=== PATIENT | female | born 1965 | race Caucasian/White ===

== ENCOUNTER 2018-10-09 07:54 | Outpatient (CLI) | payer MEDICAID ==
[2018-10-09 10:43] LABS: BASOPHILS % (AUTO) 0.8 %; EOSINOPHILS # (AUTO) 0.2 10^3/uL (0.0-0.7); EOSINOPHILS % (AUTO) 4.3 %; HGB - HEMOGLOBIN 14.7 g/dL (12.0-16.0); LYMPHOCYTES # (AUTO) 1.4 10^3/uL (1.5-3.5); LYMPHOCYTES % (AUTO) 36.4 %; MEAN CORPUSCULAR HEMOGLOBIN 32.4 pg (27.0-31.0); MEAN CORPUSCULAR HGB CONC 33.6 g/dL (32.0-36.0); MEAN CORPUSCULAR VOLUME 96.2 fL (81.0-99.0); MEAN PLATELET VOLUME 8.8 fL (7.9-10.8); MONOCYTES # (AUTO) 0.3 10^3/uL (0.0-1.0); MONOCYTES % (AUTO) 6.9 %; NEUTROPHILS % (AUTO) 51.6 %; PLT - PLATELET COUNT 171 10^3/uL (130-450); RED BLOOD COUNT 4.54 10^6/uL (4.20-5.40); RED CELL DISTRIBUTION WIDTH 13.1 % (12.0-15.0); WHITE BLOOD COUNT 3.8 x10^3/uL (4.8-10.8)
[2018-10-09 10:48] LABS: ALBUMIN 3.9 g/dL (3.2-5.5); ALBUMIN/GLOBULIN RATIO 1.4 (1.0-2.2); ALKALINE PHOSPHATASE 48 IU/L (42-121); ALT ALANINE AMINOTRANSFERASE 21 IU/L (10-60); AST ASPARTATE AMINOTRANSFERASE 34 IU/L (10-42); BILIRUBIN,TOTAL 1.3 mg/dL (0.2-1.0); BUN - BLOOD UREA NITROGEN 14 mg/dL (6-20); CALCIUM 9.1 mg/dL (8.5-10.3); CARBON DIOXIDE - CO2 27 mmol/L (21-32); CHLORIDE 106 mmol/L (101-111); CHOL/HDL RATIO 2.3 (<4.4); CHOLESTEROL 160 mg/dL; CREATININE 0.7 mg/dL (0.4-1.0); GFR - MDRD 89 (>89); GLUCOSE 93 mg/dL (70-100); HDL CHOLESTEROL 69 mg/dL; LDL CHOLESTEROL,CALCULATED 82 mg/dL; LDL/HDL RATIO 1.2 (<4.4); SODIUM 141 mmol/L (135-145); TOTAL PROTEIN 6.6 g/dL (6.7-8.2); VLDL CHOLESTEROL 9 mg/dL
[2018-10-09 11:03] LABS: HB2 TOTAL 15.3 g/dL; HEMOGLOBIN A1C 0.54 g/dL; HEMOGLOBIN A1C % 5.4 % (4.6-6.2)
== END 2018-10-09 07:55 | disposition home or self-care (01) ==
LOC: LAB.F 07:54
PROVIDERS: ATTEND Registered Nurse
DX: C50.919 Malignant neoplasm of unspecified site of unspecified female breast (principal); E55.9 Vitamin D deficiency, unspecified
CPT/HCPCS: 36415; 80053; 80061; 82306; 83036; 83721; 84443; 85025

== ENCOUNTER 2019-09-03 14:07 | Outpatient (CLI) | payer MEDICAID | END 2019-09-03 14:08 | disposition home or self-care (01) | LOC: COV 14:07 | PROVIDERS: ATTEND Family Medicine | DX: R05 Cough (principal) ==

== ENCOUNTER 2019-10-28 13:37 | Outpatient (CLI) | payer MEDICAID | END 2019-10-28 13:38 | disposition home or self-care (01) | LOC: LAB 13:37 | PROVIDERS: ATTEND Family Medicine | DX: Z01.84 Encounter for antibody response examination (principal) | CPT/HCPCS: 36415; 86769 ==

== ENCOUNTER 2020-05-12 21:14 | Outpatient (CLI) | payer MEDICAID | END 2020-05-12 21:15 | disposition home or self-care (01) | LOC: COV 21:14 | PROVIDERS: ATTEND Family Medicine | DX: R05 Cough (principal); R06.02 Shortness of breath; R53.83 Other fatigue; R68.83 Chills (without fever); R07.0 Pain in throat; R09.81 Nasal congestion; R43.8 Other disturbances of smell and taste; R09.89 Other specified symptoms and signs involving the circulatory and respiratory systems; Z20.828 Contact with and (suspected) exposure to other viral communicable diseases ==

== ENCOUNTER 2022-10-02 08:00 | Outpatient (CLI) | payer MEDICAID | END 2022-10-02 23:59 | disposition home or self-care (01) | LOC: LAB.R 08:00 | PROVIDERS: ATTEND Physician Assistant Medical | DX: R35.0 Frequency of micturition (principal) | CPT/HCPCS: 87086 ==

== ENCOUNTER 2022-10-07 09:31 | Emergency (ER) | payer MEDICAID ==
[2022-10-07] MEDS ORDERED: SODIUM CHLORIDE 0.9% 1,000 ML IV STA (10:07)
[2022-10-07] MEDS ORDERED: ONDANSETRON 4 MG/2 ML VIAL IVP STA ×2 (10:07→11:27)
[2022-10-07] MEDS ORDERED: iohexoL-300 100 ML VIAL ONE (10:15)
[2022-10-07] MEDS ORDERED: DIATR MEGLU/DIATRIZOATE SODIUM 120 ML BOTTLE ONE (10:15)
[2022-10-07 10:33] LABS: BASOPHILS % (AUTO) 0.3 %; EOSINOPHILS % (AUTO) 0.1 %; HCT - HEMATOCRIT 46.1 % (37.0-47.0); HGB - HEMOGLOBIN 15.5 g/dL (12.0-16.0); LYMPHOCYTES # (AUTO) 1.4 10^3/uL (1.5-3.5); LYMPHOCYTES % (AUTO) 17.8 %; MEAN CORPUSCULAR HEMOGLOBIN 31.8 pg (27.0-31.0); MEAN CORPUSCULAR HGB CONC 33.6 g/dL (32.0-36.0); MEAN CORPUSCULAR VOLUME 94.7 fL (81.0-99.0); MEAN PLATELET VOLUME 9.6 fL (7.9-10.8); MONOCYTES # (AUTO) 0.4 10^3/uL (0.0-1.0); MONOCYTES % (AUTO) 4.5 %; PLT - PLATELET COUNT 246 10^3/uL (130-450); RED BLOOD COUNT 4.87 10^6/uL (4.20-5.40); RED CELL DISTRIBUTION WIDTH 11.9 % (12.0-15.0); WHITE BLOOD COUNT 7.8 x10^3/uL (4.8-10.8)
[2022-10-07 10:56] LABS: ALBUMIN 3.7 g/dL (3.2-5.5); ALBUMIN/GLOBULIN RATIO 1.4 (1.0-2.2); BILIRUBIN,TOTAL 1.8 mg/dL (0.2-1.0); CALCIUM 8.9 mg/dL (8.5-10.3); CREATININE 0.9 mg/dL (0.4-1.0); MAGNESIUM 1.8 mg/dL (1.7-2.8); POTASSIUM 4.4 mmol/L (3.5-5.0); TOTAL PROTEIN 6.4 g/dL (6.7-8.2)
--- NOTE | 2022-10-07 11:52 | ED Physician Documentation ---
History of Present Illness - Stated complaint Stated Complaint: DIARRHEA - Chief complaint Chief Complaint: General - History obtained from History obtained from: Patient - Additonal information Additional information: Patient is a 56-year-old female Presenting for evaluation of nausea and vomiting that has been present for a month with episodes of epigastric abdominal pain. Pain does radiate to the lower abdomen. Patient also reports having worsening loose stool for the past week.She reports her symptoms are worse after eating and has had decreased oral intake. Patient denies any change in her weight recently.Denies blood in stools or emesis.Describes the pain as a gnawing pain and sharp at times. No radiation to the back. She is seen at the walk-in clinic 2 days ago and a urine was checked which was negative for infection.Denies known fevers. Denies prior abdominal surgeries. Review of Systems Constitutional: denies: Fever Cardiac: denies: Chest pain / pressure Respiratory: denies: Dyspnea GI: reports: Abdominal Pain, Nausea, Vomiting : denies: Dysuria, Hematuria Neurologic: denies: Headache PD PAST MEDICAL HISTORY - Past Medical History Past Medical History: Yes Respiratory: Asthma COUNTY EXTENSION AGENT: Breast cancer Psych: Claustrophobia - Past Surgical History Past Surgical History: Yes /COUNTY EXTENSION AGENT: Mastectomy - Present Medications Home Medications: Ambulatory Orders Medication Instructions Recorded Confirmed Ondansetron Odt [Zofran] 4 mg TL Q6H PRN #10 tablet 10/07/22 Oxycodone HCl/Acetaminophen 1 each PO Q6H PRN #14 tablet 10/07/22 [Percocet 5-325 mg Tablet] - Allergies Allergies/Adverse Reactions: Allergies Allergy/AdvReac Type Severity Reaction Status Date / Time Penicillins AdvReac Rash Verified 10/07/22 09:41 - Social History Does the pt smoke?: No Smoking Status: Former smoker Does the pt drink ETOH?: No Does the pt have substance abuse?: No PD ED PE NORMAL - General General: Alert and oriented X 3, No acute distress, Other (BMI of 18) - HEENT HEENT: Atraumatic - Neck Neck: Supple, no meningeal sign - Cardiac Cardiac: RRR, No murmur - Respiratory Respiratory: No respiratory distress, Clear bilaterally - Abdomen Abdomen: Normal bowel sounds, Soft, Non distended, Other (Mild epigastric tenderness to palpation; No rebound, no guarding, no mass) - Derm Derm: Warm and dry - Neuro Neuro: Normal speech Results - Vitals Vitals: Vital Signs - 24 hr 10/07/22 10/07/22 09:35 14:04 Temperature 36.8 C Heart Rate 102 H 74 Respiratory 16 18 Rate Blood Pressure 118/81 H 110/67 O2 Saturation 96 100 Oxygen O2 Source Room air - EKG (time done) 1028 EKG releavant findings:: EKG personally interpreted by author of this note. Relevant findings are: Rate 67, normal sinus rhythm, no STEMI, QTc 412 Rate: Rate (enter#) (67) Rhythm: NSR Intervals: No: Prolonged QT Ischemia: No: ST elevation c/w ischemia - Labs Labs: Laboratory Tests 10/07/22 10/07/22 10/07/22 10:25 10:25 10:25 WBC 7.8 RBC 4.87 Hgb 15.5 Hct 46.1 MCV 94.7 MCH 31.8 H MCHC 33.6 RDW 11.9 L Plt Count 246 MPV 9.6 Neut # (Auto) 6.0 Lymph # (Auto) 1.4 L [place] # (Auto) 0.4 Eos # (Auto) 0.0 Baso # (Auto) 0.0 Absolute Nucleated RBC 0.00 Nucleated RBC % 0.0 Sodium 134 L Potassium 4.4 Chloride 99 L Carbon Dioxide 20 L Anion Gap 15.0 H BUN 19 Creatinine 0.9 Estimated GFR (MDRD) 65 L Glucose 74 Calcium 8.9 Magnesium 1.8 Total Bilirubin 1.8 H AST 27 ALT 18 Alkaline Phosphatase 42 Troponin I High Sens 4.2 Total Protein 6.4 L Albumin 3.7 Globulin 2.7 Albumin/Globulin Ratio 1.4 Lipase 28 Stl C. diff Tox B Gene 10/07/22 13:50 WBC RBC Hgb Hct MCV MCH MCHC RDW Plt Count MPV Neut # (Auto) Lymph # (Auto) [place] # (Auto) Eos # (Auto) Baso # (Auto) Absolute Nucleated RBC Nucleated RBC % Sodium Potassium Chloride Carbon Dioxide Anion Gap BUN Creatinine Estimated GFR (MDRD) Glucose Calcium Magnesium Total Bilirubin AST ALT Alkaline Phosphatase Troponin I High Sens Total Protein Albumin Globulin Albumin/Globulin Ratio Lipase Stl C. diff Tox B Gene NEGATIVE PD Medical Decision Making - ED course Complexity details: reviewed results, re-evaluated patient, d/w patient ED course: 3151 - Discussed with Dr. Melvin who is on for the [facility]. Reviewed results. Patient usually sees Angela Agustin. He will help arrange for close outpatient follow-up. Presenting for evaluation of abdominal symptoms for the past 1 month.Her vital signs appear stable. Her BMI is only 18 but patient states that she has not had any recent weight loss. Labs reviewed including CBC, chemistries. Bili of 1.8. Castrate suggest perhaps some level of dehydration. Patient was given IV fluids and IV Zofran x2 with improvement in her symptoms. She was able to tolerate p.o. contrast and a CT of the abdomen pelvis obtained which I reviewed. CT scan unfortunately shows concerns for metastatic disease with unknown cancer origin.I reviewed these results with the patient and her significant other at the bedside. They are understanding that the CT scan is highly concerning for cancer with metastatic spread and that she needs close follow-up with her PCP. She is usually seen at the [facility]. I spoke to Dr. Melvin who is on- call for the clinic this weekend to review these results and to help arrange for quick outpatient follow-up which he agrees to do. Patient was given medications to help with pain and nausea at home. She is advised on concerning symptoms to return for. She was able to give a stool sample given recent reports of looser stools and that they were sent for culture as well as C. difficile testing. C. difficile testing is negative.Culture is pending. Departure - Departure Disposition: Home, Self Care Clinical Impression: Abdominal pain, Metastatic disease Condition: Stable Instructions: ED Abdominal Pain Female Non-Specific Abdominal Pain Prescriptions: Oxycodone HCl/Acetaminophen [Percocet 5-325 mg Tablet] 1 each PO Q6H PRN #14 tablet PRN Reason: pain Ondansetron Odt [Zofran] 4 mg TL Q6H PRN #10 tablet PRN Reason: Nausea / Vomiting Comments: The CT scan of your abdomen and pelvis is highly concerning for metastatic disease related to cancer. It is unclear where the primary cancer is originating from. You need very close follow-up with the [facility] This week for further testing and evaluation. I have spoken to Dr. Melvin who is on-call for the clinic this weekend. Please call the clinic tomorrow for close follow-up with your PCP. I have also sent prescriptions for antinausea and pain medications to [facility] in [place]. I am prescribing a short course of narcotic pain medication for you. These are potentially dangerous and addictive medications that should be used carefully. These medications may constipate you. Take an fqmi-ecj-esmwual stool softener (docusate) twice daily with plenty of water while taking these medications. If you go 24 hours without a bowel movement, take xwoo-mym-vbadjcn miralax, per [facility] instructions. Do not drink or drive while taking these medications. If you received narcotic or sedating medications while in the emergency department, do not drive for 24 hours. Store this medication in a safe, secure place and out of reach of children. It is a violation of federal law to give or sell this medication to another person or to use in a manner other than prescribed. The ED will not refill narcotic prescriptions, including prescriptions lost or stolen. To dispose of unwanted medications: 1. [facility] at [address] in [place] has a medication drop box. They accept prescription medications (in pill form) Saturday through Saturday 9:00 a.m. to 5:00 p.m. 2. The [facility] [employer] accepts prescription medications (in pill form only) for disposal year round. Call for more information. 3. Contact the [facility] for the next [facility] sponsored prescription drug collection event. , [phone], or [phone]; Note that many narcotic pain relievers also contain Tylenol/acetaminophen. Please ensure that your total dose of acetaminophen from all sources does not exceed 3 g (3000 mg) per day. IMPRESSION: 1. Findings highly suspicious for metastatic disease involving the abdomen and pelvis, primary neoplasm uncertain. Multiple liver lesions are present, moderate-large amount of abdominal pelvic free fluid, possible omental caking, and multiple suspicious bony lesions are present. 2. Mild right hydronephrosis, level of obstruction unclear, presumably related to suspected metastatic disease. 3. Wall thickening of the sigmoid colon and multiple distal small bowel loops is present, may be reactive related to the presence of free fluid, but nonspecific infectious or inflammatory enterocolitis also possible. 4. Cholelithiasis. Discharge Date/Time: 10/07/22 14:15
[2022-10-07] MEDS ORDERED: iohexoL-300 100 ML VIAL IVP ONE (13:19)
[2022-10-07] MEDS ORDERED: DIATRIZOATE MEGLU/DIATRIZO SOD 30 ML BOTTLE PO ONE (13:19)
--- NOTE | 2022-10-07 13:23 | CT Report ---
PROCEDURE: ABDOMEN/PELVIS W INDICATIONS: epigastric to lower abd pain CONTRAST: 100ml Omnipaque 300 TECHNIQUE: After the administration of oral and intravenous contrast, 5 mm thick sections acquired from the diap hragms to the symphysis. 5 mm thick coronal and sagittal reformats were acquired. For radiation dos e reduction, the following was used: automated exposure control, adjustment of mA and/or kV accordin g to patient size. COMPARISON: None FINDINGS: Images are denoted as (series #/image #). Visualized lung bases: No pleural effusion. Liver and biliary tree: Multiple liver lesions are present involving both lobes of the liver. Represe ntative lesions include in segment 8/7 measuring 3.2 cm (08/18) and in segment 3 measuring 2.9 cm (08/08 8). No biliary ductal dilation demonstrated. Gallbladder: Multiple gallstones are present. Spleen: Unremarkable. Pancreas: Unremarkable. Adrenal glands: Unremarkable. Kidneys and ureters: Mild right hydronephrosis, level of obstruction unclear. No left hydronephrosis. Gastrointestinal tract: No bowel obstruction. Wall thickening of the sigmoid colon and multiple dista l small bowel loops present. No evidence of mechanical small bowel obstruction. Peritoneal cavity: Moderate-large amount of abdominal and pelvic free fluid. Possible soft tissue inf iltration of the omentum, for example at the left upper abdomen (09/01). Bladder: Unremarkable. Pelvic organs: Unremarkable CT appearance. Vasculature: No abdominal aortic aneurysm. Lymph nodes: No highly suspicious lymph nodes visualized. Musculoskeletal: Innumerable small sclerotic foci present within the imaged skeleton. IMPRESSION: 1. Findings highly suspicious for metastatic disease involving the abdomen and pelvis, primary neopla sm uncertain. Multiple liver lesions are present, moderate-large amount of abdominal pelvic free flui d, possible omental caking, and multiple suspicious bony lesions are present. 2. Mild right hydronephrosis, level of obstruction unclear, presumably related to suspected metastati c disease. 3. Wall thickening of the sigmoid colon and multiple distal small bowel loops is present, may be reac tive related to the presence of free fluid, but nonspecific infectious or inflammatory enterocolitis also possible. 4. Cholelithiasis. Reviewed by: Dickson Jimenez MD on 10/07/2022 1:22 PM PDT Approved by: Dickson Jimenez MD on 10/07/2022 1:22 PM PDT Station ID: [id number]
[2022-10-07 14:04] VITALS: BP 110/67
== END 2022-10-07 14:15 | disposition home or self-care (01) ==
LOC: ED 09:31
DX: R10.13 Epigastric pain (principal); C79.9 Secondary malignant neoplasm of unspecified site; Z85.3 Personal history of malignant neoplasm of breast; Z87.891 Personal history of nicotine dependence; Z79.899 Other long term (current) drug therapy
CPT/HCPCS: 36415; 74177; 80053; 83690; 83735; 84484; 85025; 87045; 87046; 87427; 87493; 93005; 96374; 96376; 99284; Q9963; Q9967

== ENCOUNTER 2022-11-17 09:50 | Emergency (ER) | payer MEDICAID ==
--- NOTE | 2022-11-17 10:19 | ED Physician Documentation ---
History of Present Illness - Stated complaint Stated Complaint: LT LEG SWELLING - Chief complaint Chief Complaint: Ext Problem - History obtained from History obtained from: Patient - History of Present Illness Pain level max: 3 Pain level now: 3 - Additonal information Additional information: 56-year-old female with metastatic cancer, unknown primary, presents to the emergency department with left lower extremity swelling over the past several days. She has not had this happen to her before. She is not having any significant pain. She states that she is not having any shortness of breath, chest pain, fevers, chills. Denies any trauma. Nothing makes it better or worse. She does have a history of ascites, she had fluid drained from her abdomen several weeks ago. She does not feel like her abdomen is painful or tense today. Review of Systems Constitutional: denies: Fever, Chills Respiratory: denies: Cough GI: denies: Nausea, Vomiting, Diarrhea : denies: Dysuria Skin: denies: Rash Musculoskeletal: denies: Neck pain, Back pain Neurologic: denies: Headache PD PAST MEDICAL HISTORY - Past Medical History Respiratory: Asthma CORRECTIONAL PROBATION OFFICER: Breast cancer Psych: Claustrophobia - Past Surgical History Past Surgical History: Yes /CORRECTIONAL PROBATION OFFICER: Mastectomy - Present Medications Home Medications: Ambulatory Orders Medication Instructions Recorded Confirmed Ondansetron Odt [Zofran] 4 mg TL Q6H PRN #10 tablet 10/07/22 Oxycodone HCl/Acetaminophen 1 each PO Q6H PRN #14 tablet 10/07/22 [Percocet 5-325 mg Tablet] Apixaban [Eliquis] 5 mg PO BID #60 tablet 11/17/22 Apixaban [Eliquis] 10 mg PO BID #14 tablet 11/17/22 - Allergies Allergies/Adverse Reactions: Allergies Allergy/AdvReac Type Severity Reaction Status Date / Time Penicillins AdvReac Rash Verified 11/17/22 09:58 - Social History Does the pt smoke?: No Smoking Status: Former smoker Does the pt drink ETOH?: No Does the pt have substance abuse?: No PD ED PE NORMAL - Vitals Vital signs reviewed: Yes - General General: Alert and oriented X 3, No acute distress, Other (Thin female) - HEENT HEENT: PERRL, Moist mucous membranes - Neck Neck: Supple, no meningeal sign - Cardiac Cardiac: RRR, Strong equal pulses - Respiratory Respiratory: No respiratory distress, Clear bilaterally - Abdomen Abdomen: Soft, Non tender, Other (Mild distention, soft) - Derm Derm: Warm and dry - Extremities Extremities: Other (Right lower extremity does not show any acute abnormalities. Left lower extremity is approximately 2 times the size, swollen and mildly erythematous. No warmth. There is calf tenderness. Neurovascular intact. No open wounds.) - Neuro Neuro: Alert and oriented X 3 - Psych Psych: Normal mood, Normal affect Results - Vitals Vitals: Vital Signs - 24 hr 11/17/22 11/17/22 09:54 11:58 Temperature 36.8 C Heart Rate 92 82 Respiratory 16 16 Rate Blood Pressure 108/93 H 101/73 O2 Saturation 96 97 Oxygen O2 Source Room air - Labs Labs: Laboratory Tests 11/17/22 11/17/22 11/17/22 10:18 10:18 10:18 WBC 7.5 RBC 4.58 Hgb 14.2 Hct 43.6 MCV 95.2 MCH 31.0 MCHC 32.6 RDW 12.0 Plt Count 217 MPV 8.6 Neut # (Auto) 6.0 Lymph # (Auto) 0.9 L [place] # (Auto) 0.5 Eos # (Auto) 0.1 Baso # (Auto) 0.0 Absolute Nucleated RBC 0.00 Nucleated RBC % 0.0 PT 11.7 INR 1.0 APTT 26.5 Sodium 136 Potassium 3.9 Chloride 100 L Carbon Dioxide 27 Anion Gap 9.0 BUN 11 Creatinine 0.8 Estimated GFR (MDRD) 75 L Glucose 101 H Calcium 9.0 Total Bilirubin 1.1 H AST 26 ALT 17 Alkaline Phosphatase 64 Total Protein 7.4 Albumin 3.7 Globulin 3.7 Albumin/Globulin Ratio 1.0 - Rads (name of study) LLE duplex US Relevant Findings:: Final report received, See rad report PD Medical Decision Making - ED course Complexity details: reviewed results, re-evaluated patient, considered differential, d/w patient, d/w family ED course: 56-year-old female with unknown primary cancer, but the current thinking is possibly breast cancer, has metastases throughout her abdomen. She came in with left lower extremity swelling, exam concerning for DVT. Ultrasound shows a positive DVT. Discussed risks and benefits of anticoagulation and different medications. We discussed the reversibility of warfarin, bridging with Lovenox, patient elects to go with a DOAC instead. We will place her on Eliquis. Discussed risks including bleeding, risks of head injury on anticoagulants. Patient does not have any history of intracranial hemorrhage, GI bleeds, recent surgeries or recent injuries. Patient counseled regarding signs and symptoms for which I believe and urgent re-evaluation would be necessary. Patient with good understanding of and agreement to plan and is comfortable going home at this time This document was made in part using voice recognition software. While efforts are made to proofread this document, sound alike and grammatical errors may occur. Positive deep venous thrombosis left lower extremity. Departure - Departure Disposition: Home, Self Care Clinical Impression: DVT (deep venous thrombosis) Qualifiers: DVT location: lower extremity Affected thrombotic vein of extremity: unspecified vein of extremity Chronicity: acute Laterality: left Qualified Code(s): I82.402 - Acute embolism and thrombosis of unspecified deep veins of left lower extremity Condition: Good Instructions: ED DVT Follow-Up: your,doctor in 1 week [Other] Prescriptions: Apixaban [Eliquis] 5 mg PO BID #60 tablet Apixaban [Eliquis] 10 mg PO BID #14 tablet Comments: Your prescriptions were sent to [facility] in [place]. As we discussed you have extensive blood clots in your left leg. You will start on Eliquis 10 mg by mouth twice daily x1 week, then we will decrease your dose to 5 mg twice daily by mouth. Please make an appointment with your PCP for further care. Please return if you worsen, including noticing bleeding, dark, tarry stools, any other signs of bleeding. You also need to be seen immediately if you fall and strike your head or develop any severe headaches. Discharge Date/Time: 11/17/22 12:44
[2022-11-17 10:36] LABS: BASOPHILS % (AUTO) 0.3 %; EOSINOPHILS # (AUTO) 0.1 10^3/uL (0.0-0.7); EOSINOPHILS % (AUTO) 1.1 %; HCT - HEMATOCRIT 43.6 % (37.0-47.0); HGB - HEMOGLOBIN 14.2 g/dL (12.0-16.0); LYMPHOCYTES # (AUTO) 0.9 10^3/uL (1.5-3.5); LYMPHOCYTES % (AUTO) 11.9 %; MEAN CORPUSCULAR HGB CONC 32.6 g/dL (32.0-36.0); MEAN CORPUSCULAR VOLUME 95.2 fL (81.0-99.0); MEAN PLATELET VOLUME 8.6 fL (7.9-10.8); MONOCYTES # (AUTO) 0.5 10^3/uL (0.0-1.0); MONOCYTES % (AUTO) 7.2 %; NEUTROPHILS % (AUTO) 79.1 %; PLT - PLATELET COUNT 217 10^3/uL (130-450); RED BLOOD COUNT 4.58 10^6/uL (4.20-5.40); WHITE BLOOD COUNT 7.5 x10^3/uL (4.8-10.8)
[2022-11-17 10:41] LABS: PT - PROTHROMBIN TIME 11.7 secs (9.9-12.6)
[2022-11-17 10:47] LABS: ALBUMIN 3.7 g/dL (3.2-5.5); BILIRUBIN,TOTAL 1.1 mg/dL (0.2-1.0); CREATININE 0.8 mg/dL (0.4-1.0); POTASSIUM 3.9 mmol/L (3.5-5.0); TOTAL PROTEIN 7.4 g/dL (6.7-8.2)
[2022-11-17 10:49] LABS: PARTIAL THROMBOPLASTIN TIME 26.5 secs (24.9-33.3)
[2022-11-17] MEDS ORDERED: APIXABAN 5 MG TABLET PO STA (12:03)
--- NOTE | 2022-11-17 12:07 | Ultrasound Report ---
PROCEDURE: Duplex Ext Veins Left INDICATIONS: LLE swelling TECHNIQUE: Real-time imaging, as well as color and pulse Doppler interrogation, were performed of the lower extr emity deep veins from the inguinal ligament to the popliteal fossa. COMPARISON: None. FINDINGS: Internal echoes and noncompressibility noted from the left external iliac vein through the popliteal vein, consistent with thrombus. Veins in the calf were not imaged. Incidental note is made of abdominal ascites. IMPRESSION: Positive deep venous thrombosis left lower extremity. Results were discussed with Dr. Burger by the receivable manager at 11:40 AM local time Reviewed by: Nelson Kendrick MD on 11/17/2022 11:06 AM [facility] Approved by: Nelson Kendrick MD on 11/17/2022 11:06 AM [facility] Station ID: [id number]
[2022-11-17 12:30] VITALS: BP 101/73
== END 2022-11-17 12:44 | disposition home or self-care (01) ==
LOC: ED 09:50
DX: I82.402 Acute embolism and thrombosis of unspecified deep veins of left lower extremity (principal); C79.89 Secondary malignant neoplasm of other specified sites; Z87.891 Personal history of nicotine dependence
CPT/HCPCS: 36415; 80053; 85025; 85610; 85730; 93971; 99284; A9270

== ENCOUNTER 2023-06-10 11:30 | Outpatient (CLI) | payer MEDICAID ==
--- NOTE | 2023-06-11 10:24 | XRAY Report ---
PROCEDURE: Chest 2V INDICATIONS: BROCHITIS ACUTE TECHNIQUE: 2 views of the chest were acquired. COMPARISON: CT chest 05/14/2023. FINDINGS: Surgical changes and devices: Left chest port catheter with tip projecting over the right atrium. Simeon rgical clips in the right axilla. Lungs and pleura: No pleural effusions or pneumothorax. Lungs are clear. Mediastinum: Mediastinal contours appear normal. Heart size is normal. Bones and chest wall: No suspicious bony lesions. Overlying soft tissues appear unremarkable. Sta tus post bilateral mastectomies IMPRESSION: No acute cardiopulmonary process. Reviewed by: Venessa Benitez MD on 06/11/2023 10:23 AM [facility] Approved by: Venessa Benitez MD on 06/11/2023 10:23 AM [facility] Station ID: [id number]
== END 2023-06-10 23:59 | disposition home or self-care (01) ==
LOC: DI.S 11:30
PROVIDERS: ATTEND Emergency Medicine
DX: J20.9 Acute bronchitis, unspecified (principal)

== ENCOUNTER 2023-08-01 00:44 | Emergency (ER) | payer MEDICAID ==
[2023-08-01] MEDS: SODIUM CHLORIDE 0.9% 1,000 ML IV STA ×2 (01:13→07:53)
[2023-08-01 01:16] LABS: BASOPHILS % (AUTO) 1.4 %; EOSINOPHILS % (AUTO) 0.5 %; HCT - HEMATOCRIT 36.6 % (37.0-47.0); LYMPHOCYTES % (AUTO) 32.1 %; MEAN CORPUSCULAR HEMOGLOBIN 35.6 pg (27.0-31.0); MEAN CORPUSCULAR HGB CONC 32.8 g/dL (32.0-36.0); MEAN CORPUSCULAR VOLUME 108.6 fL (81.0-99.0); MEAN PLATELET VOLUME 8.9 fL (7.9-10.8); MONOCYTES % (AUTO) 6.4 %; NEUTROPHILS % (AUTO) 59.6 %; PLT - PLATELET COUNT 198 10^3/uL (130-450); RED BLOOD COUNT 3.37 10^6/uL (4.20-5.40); RED CELL DISTRIBUTION WIDTH 13.8 % (12.0-15.0); VBG BASE EXCESS 0.1 mmol/L (-2 - +2); VBG PCO2 36.6 mmHg (41-51); VBG PH 7.434 (7.31-7.41); VBG PO2 46.8 mmHg (25-47); VBG TOTAL CO2 25.1 mmol/L (24-29); WHITE BLOOD COUNT 2.2 x10^3/uL (4.8-10.8)
[2023-08-01 01:23] LABS: ABNORMAL LYMPHS % (MANUAL) 0 %
[2023-08-01 01:33] LABS: ALBUMIN 3.7 g/dL (3.2-5.5); ALBUMIN/GLOBULIN RATIO 1.3 (1.0-2.2); BILIRUBIN,TOTAL 1.3 mg/dL (0.2-1.0); CALCIUM 9.2 mg/dL (8.5-10.3); CREATININE 0.9 mg/dL (0.6-1.3); POTASSIUM 4.3 mmol/L (3.5-4.5); TOTAL PROTEIN 6.5 g/dL (6.4-8.9)
[2023-08-01 01:52] LABS: BAND NEUTROPHILS % (MANUAL) 5 %; DIFFERENTIAL COMMENT MANUAL DIFFERENTIAL; LYMPHOCYTES # (MANUAL) 0.8 10^3/uL (1.5-3.5); LYMPHOCYTES % (MANUAL) 35 %; MONOCYTES # (MANUAL) 0.1 10^3/uL (0.0-1.0); NEUTROPHILS # (MANUAL) 1.3 10^3/uL (1.5-6.6); PLATELET ESTIMATE, MANUAL NORMAL (130-450,000) (NORMAL); RBC MORPHOLOGY (MULTIPLE) NORMAL APPEARANCE (NORMAL); REACTIVE LYMPHS % (MANUAL) 2 %
[2023-08-01] MEDS: LORazepam 2 MG/ML VIAL IVP STA ×2 (01:54→06:47)
[2023-08-01 02:16] LABS: B. PARAPERTUSSIS- RESP PCR PAN NOT DETECTED; B. PERTUSSIS- RESP PCR PANEL NOT DETECTED; C. PNEUMONIAE- RESP PCR PANEL NOT DETECTED; CORONAVIRUS 229E-RESP PCR NOT DETECTED; CORONAVIRUS HKU1-RESP PCR NOT DETECTED; CORONAVIRUS NL63-RESP PCR NOT DETECTED; CORONAVIRUS OC43-RESP PCR NOT DETECTED; HUMAN METAPNEUMOVIRUS NOT DETECTED; INFLUENZA A- RESP PCR PANEL NOT DETECTED; INFLUENZA B - RESP PCR PANEL NOT DETECTED; M. PNEUMONIAE- RESP PCR PANEL NOT DETECTED; PARAINFLUENZA VIRUS 1 NOT DETECTED; PARAINFLUENZA VIRUS 2 NOT DETECTED; PARAINFLUENZA VIRUS 3 NOT DETECTED; PARAINFLUENZA VIRUS 4 NOT DETECTED; RHINOVIRUS/ENTEROVIRUS NOT DETECTED; RSV- RESP PCR PANEL NOT DETECTED; SARS-CoV-2 -RESP PCR PANEL NOT DETECTED
--- NOTE | 2023-08-01 02:25 | ED Physician Documentation ---
History of Present Illness - Stated complaint Stated Complaint: ABD/BACK PX - Chief complaint Chief Complaint: Abd Pain - History obtained from History obtained from: Patient - Additonal information Additional information: 57yF with pmh breast cancer metastatic to peritoneum, liver and bone, on oral chemotherapy s/p IV chemotherapy regimen, p/w 01/17 abdominal pain intermittent starting today and radiating to back, worse with movement, sharp. denies nausea but she took zofran around midnight preventatively as per her usual with chemotherapy regimen. denies diarrhea. Patient states she took stool softeners and fiber because she's been constipated. last BM 2 days ago. denies fever Review of Systems Constitutional: denies: Fever, Chills Cardiac: denies: Chest pain / pressure Respiratory: reports: Cough. denies: Dyspnea GI: reports: Abdominal Pain, Constipation. denies: Nausea, Vomiting, Diarrhea, Bloody / black stool : denies: Dysuria, Frequency, Hematuria PD PAST MEDICAL HISTORY - Past Medical History Past Medical History: Yes Respiratory: Asthma INSTALL TECHNICIAN: Breast cancer : None Psych: Claustrophobia Musculoskeletal: None Other Past Medical History: metastatic ca - Past Surgical History Past Surgical History: Yes /INSTALL TECHNICIAN: Mastectomy - Present Medications Home Medications: Ambulatory Orders Medication Instructions Recorded Confirmed Ondansetron Odt [Zofran] 4 mg TL Q6H PRN #10 tablet 10/07/22 07/05/23 Oxycodone HCl/Acetaminophen 1 each PO Q6H PRN #14 tablet 10/07/22 07/05/23 [Percocet 5-325 mg Tablet] Apixaban [Eliquis] 5 mg PO BID #60 tablet 11/17/22 07/05/23 Letrozole 1 tab PO DAILY 05/16/23 07/05/23 Ribociclib Succinate [Kisqali] 600 mg PO DAILY 05/16/23 07/05/23 Famotidine [Acid Line Tender Flakeboard] 20 mg PO BID 07/05/23 07/05/23 - Allergies Allergies/Adverse Reactions: Allergies Allergy/AdvReac Type Severity Reaction Status Date / Time Penicillins AdvReac Rash Verified 08/01/23 01:03 - Social History Does the pt smoke?: No Smoking Status: Never smoker Does the pt drink ETOH?: No Does the pt have substance abuse?: No Substance Use and Type: CBD oil / Products - Immunizations Immunizations are current?: Yes - POLST Patient has POLST: No PD ED PE NORMAL - Vitals Vital signs reviewed: Yes - General General: Alert and oriented X 3, Other (cachectic appearing) - HEENT HEENT: Atraumatic, PERRL, EOMI, Moist mucous membranes - Neck Neck: Supple, no meningeal sign - Cardiac Cardiac: RRR - Respiratory Respiratory: No respiratory distress, Clear bilaterally - Abdomen Abdomen: Other (tender, voluntary guarding all four quadrants) - Rectal Rectal: Other (SHRAVAN funk. rectal exam brown hard stool. mineral oil enema administered) - Back Back: No CVA TTP - Derm Derm: Normal color, Warm and dry - Extremities Extremities: No deformity - Neuro Neuro: Alert and oriented X 3 - Psych Psych: Normal mood, Normal affect Results - Vitals Vitals: Vital Signs - 24 hr 08/01/23 00:57 Temperature 36.6 C Heart Rate 86 Respiratory 19 Rate Blood Pressure 87/62 L O2 Saturation 95 Oxygen O2 Source Room air - Labs Labs: Laboratory Tests 08/01/23 08/01/23 08/01/23 01:10 01:10 01:10 WBC 2.2 L RBC 3.37 L Hgb 12.0 Hct 36.6 L MCV 108.6 H MCH 35.6 H MCHC 32.8 RDW 13.8 Plt Count 198 MPV 8.9 Neut # (Auto) Not Reportable Lymph # (Auto) Not Reportable Bladen # (Auto) Not Reportable Eos # (Auto) Not Reportable Baso # (Auto) Not Reportable Absolute Nucleated RBC Not Reportable Total Counted 100 Band Neuts % (Manual) 5 Reactive Lymphs % (Man) 2 Abnorm Lymph % (Manual) 0 Nucleated RBC % Not Reportable Neutrophils # (Manual) 1.3 L Lymphocytes # (Manual) 0.8 L Monocytes # (Manual) 0.1 Eosinophils # (Manual) 0.0 Basophils # (Manual) 0.0 Differential Comment MANUAL DIFFERENTIAL Platelet Estimate NORMAL (130-450,000) RBC Morph Micro Appear NORMAL APPEARANCE VBG pH 7.434 H VBG pCO2 36.6 L VBG pO2 46.8 VBG HCO3 24.0 VBG Total CO2 25.1 VBG O2 Saturation 83.0 H VBG Base Excess 0.1 Sodium 134 L Potassium 4.3 Chloride 101 Carbon Dioxide 26 Anion Gap 7.0 BUN 12 Creatinine 0.9 Estimated GFR (MDRD) 65 L Glucose 151 H Lactic Acid Calcium 9.2 Total Bilirubin 1.3 H AST 19 ALT 17 Alkaline Phosphatase 53 Total Protein 6.5 Albumin 3.7 Globulin 2.8 Albumin/Globulin Ratio 1.3 Lipase 11 Nasal Adenovirus (PCR) Nasal B. parapertussis DNA (PCR) Nasal Coronavir 229E PCR Nasal Coronavir HKU1 PCR Nasal Coronavir NL63 PCR Nasal Coronavir OC43 PCR Nasal Enterovir/Rhinovir PCR Nasal Influenza B PCR Nasal Influenza A PCR Nasal Parainfluen 1 PCR Nasal Parainfluen 2 PCR Nasal Parainfluen 3 PCR Nasal Parainfluen 4 PCR Nasal RSV (PCR) Nasal B.pertussis DNA PCR Nasal C.pneumoniae (PCR) Maverick Human Metapneumo PCR Nasal M.pneumoniae (PCR) Nasal SARS-CoV-2 (PCR) 08/01/23 08/01/23 01:10 01:20 WBC RBC Hgb Hct MCV MCH MCHC RDW Plt Count MPV Neut # (Auto) Lymph # (Auto) Bladen # (Auto) Eos # (Auto) Baso # (Auto) Absolute Nucleated RBC Total Counted Band Neuts % (Manual) Reactive Lymphs % (Man) Abnorm Lymph % (Manual) Nucleated RBC % Neutrophils # (Manual) Lymphocytes # (Manual) Monocytes # (Manual) Eosinophils # (Manual) Basophils # (Manual) Differential Comment Platelet Estimate RBC Morph Micro Appear VBG pH VBG pCO2 VBG pO2 VBG HCO3 VBG Total CO2 VBG O2 Saturation VBG Base Excess Sodium Potassium Chloride Carbon Dioxide Anion Gap BUN Creatinine Estimated GFR (MDRD) Glucose Lactic Acid 0.6 Calcium Total Bilirubin AST ALT Alkaline Phosphatase Total Protein Albumin Globulin Albumin/Globulin Ratio Lipase Nasal Adenovirus (PCR) NOT DETECTED Nasal B. parapertussis DNA (PCR) NOT DETECTED Nasal Coronavir 229E PCR NOT DETECTED Nasal Coronavir HKU1 PCR NOT DETECTED Nasal Coronavir NL63 PCR NOT DETECTED Nasal Coronavir OC43 PCR NOT DETECTED Nasal Enterovir/Rhinovir PCR NOT DETECTED Nasal Influenza B PCR NOT DETECTED Nasal Influenza A PCR NOT DETECTED Nasal Parainfluen 1 PCR NOT DETECTED Nasal Parainfluen 2 PCR NOT DETECTED Nasal Parainfluen 3 PCR NOT DETECTED Nasal Parainfluen 4 PCR NOT DETECTED Nasal RSV (PCR) NOT DETECTED Nasal B.pertussis DNA PCR NOT DETECTED Nasal C.pneumoniae (PCR) NOT DETECTED Maverick Human Metapneumo PCR NOT DETECTED Nasal M.pneumoniae (PCR) NOT DETECTED Nasal SARS-CoV-2 (PCR) NOT DETECTED PD Medical Decision Making - ED course ED course: 57yF presents to the ED with severe abdominal pain sudden onset today, also with 2 days of constipation. voluntary guarding on abdominal exam and hard brown stool in the vault. SBO unlikely given SUNIL with brown stool. CBC, abdominal panel unremarkable aside from chemotherapy induced leukopenia. CT a/p ordered. [address] Fountain, real radiology - abdominal mass present, with concern for high grade distal SBO at the terminal ileum, with distended loops of bowel. Patient is completely without pain at present and had brown stool in the rectal vault on my exam therefore I doubt complete bowel obstruction. d/w patient and family and offered to attempt transfer to [facility] and was accepted. No beds available at [facility] therefore plan to endorse to incoming daytime ED MD at 7am shift change. ng tube placed. Departure - Departure Clinical Impression: SBO (small bowel obstruction), Metastatic cancer, Abdominal mass Condition: Fair Forms: PCP List
[2023-08-01] MEDS ORDERED: iohexoL-300 100 ML VIAL ONE (02:42)
[2023-08-01] MEDS: iohexoL-300 100 ML VIAL IVP ONE (03:21)
[2023-08-01] MEDS: LIDOCAINE VISCOUS 2% 15 ML ORAL SYRINGE MM STA (05:31)
[2023-08-01] MEDS: LIDOCAINE 1%-EPI 1:100000 20 ML MDV TOP STA (05:31)
--- NOTE | 2023-08-01 08:25 | XRAY Report ---
PROCEDURE: Chest for Line Placement INDICATIONS: ng tube TECHNIQUE: One view of the chest was acquired. COMPARISON: Chest regressed 05/10/2024 FINDINGS: Surgical changes and devices: Enteric tube is seen with tip and sidehole projecting over the left up per quadrant stomach bubble. Left chest Port-A-Cath is seen with catheter tip projecting over the sup erior cavoatrial junction. Surgical clips are seen in the right axilla. Lungs and pleura: No pleural effusions or pneumothorax. Lungs are hyperexpanded and clear. Mediastinum: Mediastinal contours appear normal. Heart size is normal. Bones and chest wall: No suspicious bony lesions. Overlying soft tissues appear unremarkable. IMPRESSION: Enteric tube is seen in satisfactory position. No acute cardiopulmonary abnormality. Reviewed by: Dickson Hernández MD on 08/01/2023 8:24 AM PST Approved by: Dickson Hernández MD on 08/01/2023 8:24 AM PST Station ID: [id number]
[2023-08-01] MEDS: HYDROmorphone 1 MG/ML CARPUJECT IVP STA (08:36)
--- NOTE | 2023-08-01 08:49 | CT Report ---
PROCEDURE: Abdomen/Pelvis W INDICATIONS: abdominal pain periumbilical, hx metastatic cancer CONTRAST: Omni 300, 100mls TECHNIQUE: After the administration of intravenous contrast, a CT scan of the abdomen and pelvis was performed. Images were recorded and evaluated at appropriate window settings. Reformats: coronal and sagittal. F or radiation dose reduction, the following was used: automated exposure control, adjustment of mA and /or kV according to patient size. COMPARISON: CT abdomen/pelvis 05/14/2023 FINDINGS: Image quality: Diagnostic. Lower chest: Unremarkable. Liver: Multiple hypoattenuating hepatic masses are again seen throughout the liver. These do not appe ar significantly changed in size and number when compared to the CT from 05/14/2023 Gallbladder and biliary tree: Multiple calcified gallstones without significant pericholecystic infla mmatory changes. Spleen: No splenomegaly. Pancreas: No pancreatic ductal dilation. Adrenals: No adrenal nodule. Kidneys and ureters: No hydronephrosis. No renal cystic lesion which requires follow up. No solid mas s. Stable subcentimeter left renal hypodensities, most likely benign cysts. Stomach, bowel and peritoneum: Bowel thickening and hyperenhancement is seen within an intermediate t o long segment of distal ileum in the pelvis to the level of the ileocolic junction. Ill-defined hypo attenuating signal is seen in this region that is poorly defined due to surrounding ascites. A small to moderate amount of free fluid is seen throughout the abdomen and pelvis. No pneumoperitoneum. Lymph nodes: No central or retroperitoneal adenopathy. Vessels: No infrarenal aortic aneurysm. PELVIS Reproductive organs: Unremarkable. Bladder: No abnormal wall thickening, accounting for underdistention. Pelvic lymph nodes: No pelvic adenopathy by size criteria. Bones: Numerous osteoblastic metastases are again seen throughout the visualized skeleton, similar in distribution when compared to the CT from 05/14/2023. Other: No significant ventral or inguinal hernia. IMPRESSION: 1.Mildly dilated loops of distal small bowel with associated bowel wall thickening to the level of th e ileocolic junction. The degree of bowel dilation and appears similar when compared to the CT from 07/15/2022. Findings may represent a nonspecific enteritis although a partially obstructing mass at the ileocolic junction is not excluded. Complete obstruction is felt to be less likely. MR enterography could be performed for further evaluation of the terminal ileum and cecum if indicated clinically. 2.Small to moderate volume of ascites is again seen throughout the abdomen and pelvis. No definite pe ritoneal carcinomatosis, although a subtle peritoneal implant is difficult to exclude. 3.Stable hepatic metastases when compared to the CT from 05/14/2023. 4.Stable osteoblastic metastases. 5.Cholelithiasis. Reviewed by: Dickson Hernández MD on 08/01/2023 8:48 AM PST Approved by: Dickson Hernández MD on 08/01/2023 8:48 AM PST Station ID: [id number]
[2023-08-01 09:51] LABS: BILIRUBIN,URINE NEGATIVE (NEGATIVE); GLUCOSE, URINE (UA) NEGATIVE (NEGATIVE); KETONES,URINE (UA) NEGATIVE (NEGATIVE); LEUKOCYTE ESTERASE, URINE NEGATIVE (NEGATIVE); NITRITE,URINE NEGATIVE (NEGATIVE); OCCULT BLOOD,URINE NEGATIVE (NEGATIVE); PROTEIN,URINE TRACE mg/dL (NEGATIVE); UROBILINOGEN,URINE 0.2 (NORMAL) E.U./dL (NORMAL)
[2023-08-01 09:52] LABS: CLARITY,URINE CLEAR (CLEAR)
[2023-08-01 16:13] VITALS: BP 100/62; O2SAT 94
--- NOTE | 2023-08-14 21:20 | ED Physician Documentation ---
ED Addendum - Addendum Addendum: 08/14/23 21:17 The pt was signed out to me at change of shift, pending acceptance and transfer to higher level of care after presenting with abdominal pain in the setting of metastatic cancer. She was found to have SBO secondary to obstructing mass, and was not considered a good candidate for treatment at our critical access facility. I did ultimately speak with Tuyet Funez and [facility] of surgery and internal medicine at [facility], and the pt was accepted in transfer. She was treated symptomatically during her stay, and was comfortable and stable upon leaving the ED. Final impression: see original note Disposition: transfer to acute care hospital in serious but stable condition.
== END 2023-08-01 16:10 | disposition short-term general hospital (02) ==
LOC: ED 00:44
DX: K56.609 Unspecified intestinal obstruction, unspecified as to partial versus complete obstruction (principal); C48.2 Malignant neoplasm of peritoneum, unspecified; C78.7 Secondary malignant neoplasm of liver and intrahepatic bile duct; C79.51 Secondary malignant neoplasm of bone
CPT/HCPCS: 36415; 74177; 80053; 81003; 82803; 83605; 83690; 85025; 87040; 87633; 96361; 96374; 96375; 96376; 99285; J1170; J2060; Q9967; 81001; 87086

== ENCOUNTER 2023-09-09 11:51 | Outpatient (CLI) | payer MEDICAID ==
[2023-09-09] MEDS ORDERED: DIATRIZOATE MEGLU/DIATRIZO SOD 30 ML BOTTLE PO ONE (12:58)
[2023-09-09] MEDS ORDERED: iohexoL-300 100 ML VIAL ONE (12:58)
[2023-09-09] MEDS: iohexoL-300 100 ML VIAL IVP ONE (14:08)
[2023-09-09] MEDS: DIATRIZOATE MEGLU/DIATRIZO SOD 30 ML BOTTLE PO ONE (14:09)
--- NOTE | 2023-09-09 16:18 | CT Report ---
PROCEDURE: Abdomen/Pelvis W INDICATIONS: BREAST CA CONTRAST: Omni 300 100ml TECHNIQUE: After the administration of intravenous contrast, a CT scan of the abdomen and pelvis was performed. Images were recorded and evaluated at appropriate window settings. Reformats: coronal and sagittal. F or radiation dose reduction, the following was used: automated exposure control, adjustment of mA and /or kV according to patient size. COMPARISON: CT 05/14/2023, 08/01/2023 FINDINGS: Image quality: Diagnostic. Lower chest: Unremarkable. Liver: Pseudocirrhosis appearance of the liver due to the presence of extensive metastatic disease. S imilar size and number of metastatic lesions. Reference lesions as follows: -2.1 cm lesion in segment 7, previously 2.8 cm using similar measuring techniques (series 2, image 21 ). -1.5 cm lesion in segment 2, previously 2.6 cm using similar measuring techniques (series 2, image 31 ). Gallbladder and biliary tree: Cholelithiasis without wall thickening. No biliary dilation. Spleen: No splenomegaly. Pancreas: No pancreatic ductal dilation. Adrenals: No adrenal nodule. Kidneys and ureters: No hydronephrosis. No renal cystic lesion which requires follow up. No solid mas s. Stomach, bowel and peritoneum: No bowel distension. Small volume ascites. Lymph nodes: No central or retroperitoneal adenopathy. Vessels: No infrarenal aortic aneurysm. PELVIS Reproductive organs: Unremarkable. Bladder: No abnormal wall thickening, accounting for underdistention. Pelvic lymph nodes: No pelvic adenopathy by size criteria. Bones: Diffuse osseous metastatic disease, similar to prior. No pathologic fracture or measurable sof t tissue component. Other: No significant ventral or inguinal hernia. IMPRESSION: Slight interval decrease in size of the reference liver metastasis, as above. Stable diffuse osseous metastatic disease, without pathologic fracture. Cholelithiasis without evidence of acute cholecystitis. Stable small volume ascites. Reviewed by: Jarod Kaba MD on 09/09/2023 4:17 PM PDT Approved by: Jarod Kaba MD on 09/09/2023 4:17 PM PDT Station ID: [id number]
--- NOTE | 2023-09-09 16:24 | CT Report ---
PROCEDURE: Chest W INDICATIONS: BREAST CA CONTRAST: Omni 300 100ml TECHNIQUE: After the administration of intravenous contrast, a CT scan of the chest was performed. Images were recorded and evaluated at appropriate window settings. Reformats: axial MIP of the chest, coronal and sagittal. For radiation dose reduction, the following was used: automated exposure control, adjustme nt of mA and/or kV according to patient size. COMPARISON: CT 08/01/2023. 05/14/2023. FINDINGS: Image quality: Diagnostic. Chest wall and lower neck: Possible 1.8 cm left thyroid nodule. No axillary or supraclavicular adenop athy by size. Left chest wall port tip terminates in the low SVC. Lungs and pleura: No consolidation. No pleural effusions. No pneumothorax. No suspicious pulmonary n odules which require follow up. Biapical scarring. Stable 2 mm solid nodule in the central left lowe r lobe (series 10, image 44). Mediastinum: Heart size is normal. No pericardial effusion. No large vessel abnormality. No mediastin al adenopathy by size criteria. Bones: Diffuse osseous metastatic disease, without pathologic fracture. Upper Abdomen: Please see dedicated CT. IMPRESSION: No evidence of metastatic disease in the chest. Stable diffuse osseous metastatic disease, without pathologic fracture. Possible 1.8 cm left thyroid nodule. Recommend dedicated thyroid ultrasound per consensus guidelines. Reviewed by: Jarod Kaba MD on 09/09/2023 4:22 PM PDT Approved by: Jarod Kaba MD on 09/09/2023 4:22 PM PDT Station ID: [id number]
== END 2023-09-09 11:52 | disposition home or self-care (01) ==
LOC: DI 11:51
PROVIDERS: ATTEND Internal Medicine Hematology & Oncology
DX: C50.919 Malignant neoplasm of unspecified site of unspecified female breast (principal); C78.7 Secondary malignant neoplasm of liver and intrahepatic bile duct; C79.51 Secondary malignant neoplasm of bone; K80.20 Calculus of gallbladder without cholecystitis without obstruction; R18.8 Other ascites
CPT/HCPCS: 71260; 74177; Q9963; Q9967

== ENCOUNTER 2023-10-08 18:59 | Outpatient (CLI) | payer MEDICAID ==
--- NOTE | 2023-10-08 21:33 | Ultrasound Report ---
PROCEDURE: Pelvic Limited INDICATIONS: RLQ ABDOMINAL/PELVIC SWELLING TECHNIQUE: Real-time transabdominal scanning was performed of the right inguinal region, with image documentatio n. COMPARISON: None. FINDINGS: Focused ultrasound examination of right inguinal region at patient's reported area of palpable lump s hows complex heterogeneously hypoechoic structure within right gluteal region and measures 11.6 x 7.0 3 x 7.94 cm in size. No internal vascularity is seen. Surrounding hyperemia is seen. 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 IMPRESSION: Finding may represent organizing hematoma in right inguinal region, suggest clinical correlation and follow-up. Reviewed by: Adithya Kelly MD on 10/08/2023 9:31 PM PDT Approved by: Adithya Kelly MD on 10/08/2023 9:31 PM PDT Station ID: [id number]
== END 2023-10-08 19:00 | disposition home or self-care (01) ==
LOC: DI 18:59
PROVIDERS: ATTEND Physician Assistant Medical
DX: R19.03 Right lower quadrant abdominal swelling, mass and lump (principal)

== ENCOUNTER 2023-10-08 19:00 | Outpatient (CLI) | payer MEDICAID ==
--- NOTE | 2023-10-10 09:45 | Ultrasound Report ---
PROCEDURE: Soft Tissue Head or Neck INDICATIONS: THYROID NODULE TECHNIQUE: Real-time scanning was performed of the thyroid gland, with image documentation. COMPARISON: CT chest with contrast on September 09, 2023 FINDINGS: Right: Thyroid lobe measures 2.7 x 0.5 x 1.1 cm, and is homogeneous in echotexture. Left: Thyroid lobe measures 4.4 x 1.1 x 1.4 cm, and is homogenous in echotexture. Isthmus: 0.2 cm thick. Diffusely increased vascularity throughout the thyroid gland. Nodule number: One Location: Left inferior Size: 1 x 0.7 x 0.7 cm. Composition: Solid (2 points). Echogenicity: Hypoechoic (2 points). Shape: wider than tall (0 points). Margins: Smooth (0 points). Echogenic foci: None (0 points). Total points: 4 ACR TI-RADS category: TI-RADS 4: Moderately suspicious. Nodule number: Two Location: Left mid/inferior Size: Less than 0.5 cm Composition: Solid (2 points). Echogenicity: Anechoic (0 points). Shape: wider than tall (0 points). Margins: Smooth (0 points). Echogenic foci: None (0 points). Total points: 2 ACR TI-RADS category: TI-RADS 2: Not suspicious. IMPRESSION: 1.Thyroid gland demonstrates diffusely increased vascularity which may be seen in the setting of thyr oiditis. Right thyroid lobe is atrophic compared to the contralateral side. Correlate with thyroid fu nction tests. 2.Left inferior thyroid nodule is TIRADS-4. Recommend repeat ultrasound in one year. ACR TI-RADS definitions and recommendations: TI-RADS 1 (benign): 0 points. FNA not needed. TI-RADS 2 (not suspicious): 2 points. FNA not needed. TI-RADS 3 (mildly suspicious): 3 points. "FNA if 2.5 cm or larger, follow up if 1.5 cm or larger (at 1, 3, and 5 years). TI-RADS 4 (moderately suspicious): 4-6 points. "FNA if 1.5 cm or larger, follow up if 1 cm or larger (at 1, 2, 3, and 5 years). TI-RADS 5 (highly suspicious): 7 points or more. "FNA if 1 cm or larger, follow up if 0.5 cm or larger (every year for 5 years). Reviewed by: Luis Dunn MD on 10/10/2023 9:44 AM PDT Approved by: Luis Dunn MD on 10/10/2023 9:44 AM PDT Station ID: [id number]
== END 2023-10-08 19:01 | disposition home or self-care (01) ==
LOC: DI 19:00
PROVIDERS: ATTEND Registered Nurse
DX: E04.2 Nontoxic multinodular goiter (principal)

== ENCOUNTER 2023-10-24 08:00 | Outpatient (CLI) | payer MEDICAID ==
[2023-10-24 19:32] LABS: BASOPHILS # (AUTO) 0.1 10^3/uL (0.0-0.1); BASOPHILS % (AUTO) 1.3 %; EOSINOPHILS # (AUTO) 0.1 10^3/uL (0.0-0.7); HCT - HEMATOCRIT 30.2 % (37.0-47.0); HGB - HEMOGLOBIN 9.3 g/dL (12.0-16.0); LYMPHOCYTES # (AUTO) 1.3 10^3/uL (1.5-3.5); LYMPHOCYTES % (AUTO) 27.8 %; MEAN CORPUSCULAR HEMOGLOBIN 32.1 pg (27.0-31.0); MEAN CORPUSCULAR HGB CONC 30.8 g/dL (32.0-36.0); MEAN CORPUSCULAR VOLUME 104.1 fL (81.0-99.0); MEAN PLATELET VOLUME 9.4 fL (7.9-10.8); MONOCYTES # (AUTO) 0.3 10^3/uL (0.0-1.0); MONOCYTES % (AUTO) 6.8 %; NEUTROPHILS # (AUTO) 2.8 10^3/uL (1.5-6.6); NEUTROPHILS % (AUTO) 61.7 %; PLT - PLATELET COUNT 302 10^3/uL (130-450); RED CELL DISTRIBUTION WIDTH 17.9 % (12.0-15.0); WHITE BLOOD COUNT 4.5 x10^3/uL (4.8-10.8)
[2023-10-24 19:38] LABS: SLIDE REVIEW? Indicated
[2023-10-24 19:43] LABS: BUN - BLOOD UREA NITROGEN 19 mg/dL (6-20); CALCIUM 9.2 mg/dL (8.5-10.3); CARBON DIOXIDE - CO2 29 mmol/L (21-32); CHLORIDE 102 mmol/L (101-111); CREATININE 0.5 mg/dL (0.6-1.3); CRP - C-REACTIVE PROTEIN < 0.5 mg/dL (<0.5); GFR - MDRD 128 (>89); GLUCOSE 96 mg/dL (74-104); POTASSIUM 4.2 mmol/L (3.5-4.5); SODIUM 138 mmol/L (135-145)
[2023-10-24 20:54] LABS: DIFFERENTIAL COMMENT MANUAL=AUTO DIFF; PLATELET ESTIMATE, MANUAL NORMAL (130-450,000) (NORMAL); PLATELET MORPHOLOGY NORMAL APPEARANCE (NORMAL); RBC MORPHOLOGY (MULTIPLE) NORMAL APPEARANCE (NORMAL)
== END 2023-10-24 23:59 | disposition home or self-care (01) ==
LOC: LAB.R 08:00
PROVIDERS: ATTEND Internal Medicine Infectious Disease
DX: K65.1 Peritoneal abscess (principal)
CPT/HCPCS: 36415; 80048; 85025; 85651; 86140

== ENCOUNTER 2024-06-14 16:01 | Inpatient (IN) ==
--- NOTE | 2024-06-14 16:05 | ED Physician Documentation ---
History of Present Illness Stated complaint Stated Complaint: HYPOTENSION Chief complaint Chief Complaint: General Additonal information Additional information: 58-year-old woman with stage IV cancer with peritoneal carcinomatosis has not been doing well last 2 weeks and presents by ambulance for encephalopathy and altered mental status as well as hypotension with prehospital blood pressures in the range of 77/50. It has improved somewhat en route after administration of IV saline. She did have a paracentesis 2 days ago. [place] Coma Scale Assess Eye opening: Spontaneous Verbal response: Confused Motor response: Obeys Commands Total score: 14 Meds/Allgy Home Medications Ambulatory Orders Medication Instructions Recorded Confirmed famotidine 20 mg tablet (Acid 20 mg PO BID 07/05/23 06/06/24 Preservative Filler Machine Operator (famotidine)) albuterol sulfate 90 mcg/actuation 2 puff inhalation Q4H PRN SOA 08/01/23 06/06/24 aerosol inhaler (Proventil HFA) ondansetron 4 mg disintegrating 4 - 8 mg translingual Q6H PRN 08/01/23 06/06/24 tablet Nausea / Vomiting apixaban 5 mg tablet (Eliquis) See Rx Instructions .Route 04/02/24 06/06/24 .COMPLEX #180 tabs morphine 30 mg capsule,extended 30 mg PO Q24H 05/18/24 06/06/24 release 24 hr multiphase (Avinza) lactulose 10 gram/15 mL oral 10 g (15 mL) PO TID #450 mL 06/09/24 solution Allergies Allergies Allergy/AdvReac Type Severity Reaction Status Date / Time Penicillins AdvReac Rash Verified 06/14/24 16:19 PFSH Surgical History Surgical History (Updated 06/14/24 @ 17:09 by Deedee Núñez, RN, BSN) History of insertion of central venous access port Social History Social History Smoking Status: Never smoker Do you vape?: No Patient requests smoking cessation consult: No Marital Status: Support Person: Yes Relationship: History of Abuse: No Service: No POLST Patient has POLST: No Exam Constitutional She appears both chronically and acutely ill with encephalopathy and sleepiness. Respiratory breath sounds equal bilaterally, normal respiratory effort and clear to auscultation bilaterally Cardiovascular normal heart rate noted, regular rhythm noted and no murmur Gastrointestinal Moderate but not tense ascites, no abdominal tenderness. Neurology GCS calculation - Eye opening: Spontaneous Verbal response: Confused Motor response: Obeys Commands [place] Coma Scale total score: 14 Results Vitals Vitals: Vital Signs - 24 hr 06/14/24 16:14 06/14/24 16:15 06/14/24 16:45 Temperature 36.2 C L Temperature Source Temporal Artery Scan Pulse Rate 157 H 160 H 162 H Respiratory Rate 14 12 14 Blood Pressure 80/51 L 80/55 L O2 Saturation 99 99 97 O2 Source Room air Pain Intensity 0 06/14/24 17:00 06/14/24 17:30 Temperature Temperature Source Pulse Rate 160 H 163 H Respiratory Rate 12 14 Blood Pressure 79/57 L 84/50 L O2 Saturation 98 98 O2 Source Nasal cannula Pain Intensity Oxygen O2 Source Nasal cannula EKG (time done) 1625: EKG releavant findings:: EKG personally interpreted by author of this note. Relevant findings are: Normal sinus rhythm with rate of 80, left axis deviation, inferior Q waves, no acute looking findings. Labs Labs: Laboratory Tests 06/14/24 06/14/24 16:24 16:45 WBC 7.0 RBC 4.06 L Hgb 10.9 L Hct 34.8 L MCV 85.7 MCH 26.8 L MCHC 31.3 L RDW 23.2 H Plt Count 155 MPV 9.6 Neut # (Auto) 5.5 Lymph # (Auto) 0.9 L [place] # (Auto) 0.5 Eos # (Auto) 0.0 Baso # (Auto) 0.0 Absolute Nucleated RBC 0.04 Nucleated RBC % 0.6 Manual Slide Review Indicated Platelet Estimate NORMAL (130-450,000) Platelet Morphology NORMAL APPEARANCE RBC Morph Micro Appear 3+ ANISOCYTOSIS Sodium 117 L* Potassium 6.4 H* Chloride 91 L Carbon Dioxide 17 L Anion Gap 9.0 BUN 38 H Creatinine 1.4 H Estimated GFR (MDRD) 39 L Glucose 96 Calcium 8.2 L Total Bilirubin 1.1 H AST 122 H ALT 86 H Alkaline Phosphatase 286 H Ammonia 100.1 H* Total Protein 4.1 L Albumin 2.4 L Globulin 1.7 L Albumin/Globulin Ratio 1.4 PD Medical Decision Making ED course ED course: The RN reported to me that her heart rate was about 160. On view of the monitor it looks like it is double counting and EKG shows her heart rate at 80.This is a 58-year-old woman with metastatic breast cancer with peritoneal carcinomatosis who has been dwindling the last few weeks. On prior visits she very much wanted to go home and was given divided doses of hypertonic saline, albumin, and correction of her potassium. Also lactulose. Today she is more encephalopathic with worse sodium down to 117, worse potassium up to 6.4, worsening renal function, elevated ammonia. Mom at the bedside who says that her significant other Daryl is actually her decision-maker. That said it does not sound like she has a formal POA. There may be a medical directive at home but nobody can find it. Mom understands that at this point she is currently full code, but she does have questions about hospice. Daryl is not at the bedside but will discuss again when he returns. Her significant other, Daryl arrived and we did discuss goals of care. He understands that she is probably at the end of life. Recently wanting to be DNR but I talked with him what that actually means and they are starting to reconsider. He would like her to stay in the hospital for now for treatment of her acute medical illness. Discharge Plan Discharge Patient Disposition: [facility] DC/Xfer Condition: Serious Clinical Impression: Increased ammonia level, Peritoneal carcinomatosis, Acute hyperkalemia, Encephalopathy Hypotension Qualifiers: Hypotension type: unspecified hypotension type Qualified Code(s): I95.9 - Hypotension, unspecified Prescriptions: No Action Eliquis 5 mg tablet See Rx Instructions .ROUTE .COMPLEX Qty: 180 2RF Dose Instruction: take 1 tablet by mouth twice a day Rx Instructions: take 1 tablet by mouth twice a day famotidine [Acid Preservative Filler Machine Operator (famotidine)] 20 MG tablet 20 mg PO BID albuterol sulfate [Proventil HFA] 6.7 GM HFA aerosol inhaler 2 puff inhalation Q4H PRN (Reason: SOA) ondansetron 4 MG tablet,disintegrating 4 - 8 mg translingual Q6H PRN (Reason: Nausea / Vomiting) lactulose 10 gram/15 mL solution 10 g PO TID Qty: 450 0RF morphine [Avinza] 30 mg capsule, ER multiphase 24 hr 30 mg PO Q24H Print Language: Haitian Stand Alone Forms: PCP List
[2024-06-14] MEDS: ALBUMIN 25% 12.5 GM/50 ML VIAL IV STA (16:29)
[2024-06-14 16:38] LABS: BASOPHILS % (AUTO) 0.1 %; HCT - HEMATOCRIT 34.8 % (37.0-47.0); HGB - HEMOGLOBIN 10.9 g/dL (12.0-16.0); LYMPHOCYTES # (AUTO) 0.9 10^3/uL (1.5-3.5); LYMPHOCYTES % (AUTO) 12.9 %; MEAN CORPUSCULAR HEMOGLOBIN 26.8 pg (27.0-31.0); MEAN CORPUSCULAR HGB CONC 31.3 g/dL (32.0-36.0); MEAN CORPUSCULAR VOLUME 85.7 fL (81.0-99.0); MEAN PLATELET VOLUME 9.6 fL (7.9-10.8); MONOCYTES # (AUTO) 0.5 10^3/uL (0.0-1.0); MONOCYTES % (AUTO) 7.7 %; NEUTROPHILS # (AUTO) 5.5 10^3/uL (1.5-6.6); NRBC ABSOLUTE COUNT (AUTO) 0.04 x10^3/uL; NUCLEATED RED BLOOD CELLS AUTO 0.6 /100WBC; PLT - PLATELET COUNT 155 10^3/uL (130-450); RED BLOOD COUNT 4.06 10^6/uL (4.20-5.40); RED CELL DISTRIBUTION WIDTH 23.2 % (12.0-15.0)
[2024-06-14 16:40] LABS: SLIDE REVIEW? Indicated
[2024-06-14 17:18] LABS: ALBUMIN 2.4 g/dL (3.2-5.5); ALBUMIN/GLOBULIN RATIO 1.4 (1.0-2.2); BILIRUBIN,TOTAL 1.1 mg/dL (0.2-1.0); CALCIUM 8.2 mg/dL (8.5-10.3); CREATININE 1.4 mg/dL (0.6-1.3); POTASSIUM 6.4 mmol/L (3.5-4.5); TOTAL PROTEIN 4.1 g/dL (6.4-8.9)
[2024-06-14 17:45] LABS: PLATELET ESTIMATE, MANUAL NORMAL (130-450,000) (NORMAL); PLATELET MORPHOLOGY NORMAL APPEARANCE (NORMAL); RBC MORPHOLOGY (MULTIPLE) 3+ ANISOCYTOSIS (NORMAL)
[2024-06-14] MEDS: CALCIUM GLUC 1,000MG/50ML-NACL 1,000 MG/50 ML BAG IV STA (19:30)
[2024-06-14] MEDS: SODIUM ZIRCONIUM CYCLOSILICATE 5 GM PACKET PO STA (19:30)
[2024-06-14] MEDS: SODIUM CHLORIDE 3% HYPERTONIC 50 ML IV SCH (19:30)
[2024-06-14] MEDS: LACTULOSE 10 GM /15 ML UDC PO STA (19:30)
[2024-06-14] MEDS: LACTATED RINGERS 1,000 ML IV ONE (19:33)
--- NOTE | 2024-06-14 19:58 | HISTORY & PHYSICAL EXAMINATION ---
Chief Complaint Chief Complaint Chief Complaint: Altered mental status History of Present Illness Admitted From Admitted From:: Home History Obtained From Exam Limitations: Patient is completely not interactive with interview. ROS from S/O History of Present Illness HPI Comment/Other: 58-year-old woman with stage IV cancer and peritoneal carcinomatosis who has been progressively getting worse over the past 2 weeks presents with encephalopathy and low blood pressure. Prehospital blood pressure was 77/50. She has liver failure, on lactulose. She gets frequent paracenteses, with the last one 2 days ago. In the ER, lab work was significant for sodium of 117, potassium 6.4, creatinine 1.4, calcium 8.2. Her LFTs are somewhat higher than normal, and her ammonia is 100.1. Hospitalist was contacted for acute on chronic hyponatremia, acute kidney failure with elevated potassium and metabolic encephalopathy. Meds/Allgy Home Medications Ambulatory Orders Medication Instructions Recorded Confirmed famotidine 20 mg tablet (Acid 20 mg PO BID 07/05/23 06/06/24 Upper And Bottom Lacer Hand (famotidine)) albuterol sulfate 90 mcg/actuation 2 puff inhalation Q4H PRN SOA 08/01/23 06/06/24 aerosol inhaler (Proventil HFA) ondansetron 4 mg disintegrating 4 - 8 mg translingual Q6H PRN 08/01/23 06/06/24 tablet Nausea / Vomiting apixaban 5 mg tablet (Eliquis) See Rx Instructions .Route 04/02/24 06/06/24 .COMPLEX #180 tabs morphine 30 mg capsule,extended 30 mg PO Q24H 05/18/24 06/06/24 release 24 hr multiphase (Avinza) lactulose 10 gram/15 mL oral 10 g (15 mL) PO TID #450 mL 06/09/24 solution Allergies Allergies Allergy/AdvReac Type Severity Reaction Status Date / Time Penicillins AdvReac Rash Verified 06/14/24 16:19 PFSH Surgical History Surgical History (Updated 06/14/24 @ 17:09 by Deedee Núñez, RN, BSN) History of insertion of central venous access port Social History Social History Smoking Status: Never smoker Do you vape?: No Patient requests smoking cessation consult: No Marital Status: Support Person: Yes Relationship: History of Abuse: No Service: No POLST Patient has POLST: No Review of Systems ROS limited due to patient being noninteractive with interview Constitutional Denies: Fever or Chills Cardiovascular Denies: Irregular heart rate, chest pain, palpitations or shortness of breath with exertion Respiratory Denies: Shortness of breath Gastrointestinal Reports: Abdominal distention Neurological Reports: General weakness Exam Constitutional Very ill, elderly appearing female with bitemporal wasting, dry mucous membranes And visible ribs HENMT normocephalic and head/scalp atraumatic Eyes PERRL Neck/C-Spine visual inspection normal Chest Ribs clearly visible Respiratory breath sounds equal bilaterally Cardiovascular normal heart rate noted and peripheral pulses 2+ throughout Gastrointestinal tender to palpation (Abdominal palpation was the only thing that could make her move) (mild) Extremities normal to inspection Neurology Blank stare, moves extremities in response to pain Psychiatry mental status abnormal Skin rash noted (Rash on left breast) Conclusion/Plan Problem List (1) Dehydration with hyponatremia: Plan: NA 117 Was 124 on 06/12/2024 Received hypertonic saline per ER provider Was started on saline drip by EMS Continue saline at 100 Sodium every 4 Target correction no higher than 125 before 4 PM tomorrow (2) Encephalopathy: Plan: Likely secondary to acute hyponatremia, liver failure, kidney failure No lateralizing deficits to suggest stroke Fluids as above Will go ahead and cover for SBP with Rocephin Paracentesis in a.m. with SBP labs Will consider CT head when more stable (3) Acute hyperkalemia: Plan: Received calcium in ER Peaked T waves on EKG, no significant arrhythmia on telemetry Will attempt to dilute with NS Was not alert enough to take Lokelma If she experiences any cardiac instability, will order calcium, bicarb, insulin/D50 (4) Acute kidney failure: Plan: Manage electrolyte disturbances as otherwise described NS at 100 CMP in a.m. (5) Hypocalcemia: Plan: Repleted by ER provider ICU electrolyte protocol (6) Hypotension: Plan: IVF as above Levo as needed Received albumin in the ER Qualifiers: Hypotension type: unspecified hypotension type Qualified Code(s): I95.9 - Hypotension, unspecified (7) Status post abdominal paracentesis: Plan: Abdomen is protuberant and spite of paracentesis 2 days ago. Fluid shift noted Paracentesis ordered, will check cell count, cultures to rule out SBP given that she is encephalopathic Will empirically cover with Rocephin Plan Discussed very poor prognosis with significant other and mother at bedside. I expressed my concern that she may not even make it through the night much less discharge. Family has agreed to make her DNR, but has not decided on intubation at this point. Her significant other named himself is her surrogate decision maker Lab Results Lab results reviewed: Yes 06/14/24 16:24 06/14/24 16:24 EKG Results EKG Interpreted Independently: Yes EKG Findings: Sinus rhythm with peaked T waves Core Measures DVT/VTE - Prophylaxis VTE/DVT Device ordered at admit?: Yes
[2024-06-14] MEDS ORDERED: ONDANSETRON ODT 4 MG TABLET TL PRN (20:36)
[2024-06-14] MEDS: NOREPINEPHRINE/0.9 % NS 8 MG/250 ML BAG IV SCH (20:42)
[2024-06-14] MEDS: cefTRIAXone 1 GM VIAL IVP SCH (20:55)
[2024-06-14] MEDS: SODIUM CHLORIDE 0.9% 1,000 ML IV SCH (21:24)
[2024-06-15] MEDS: SODIUM CHLORIDE FLUSH 0.9% 10 ML SYRINGE IVP SCH (03:08)
[2024-06-15 04:50] LABS: BASOPHILS % (AUTO) 0.3 %; EOSINOPHILS % (AUTO) 0.3 %; HCT - HEMATOCRIT 30.8 % (37.0-47.0); HGB - HEMOGLOBIN 9.5 g/dL (12.0-16.0); LYMPHOCYTES # (AUTO) 0.6 10^3/uL (1.5-3.5); LYMPHOCYTES % (AUTO) 14.1 %; MEAN CORPUSCULAR HEMOGLOBIN 26.7 pg (27.0-31.0); MEAN CORPUSCULAR HGB CONC 30.8 g/dL (32.0-36.0); MEAN CORPUSCULAR VOLUME 86.5 fL (81.0-99.0); MONOCYTES # (AUTO) 0.4 10^3/uL (0.0-1.0); MONOCYTES % (AUTO) 10.1 %; NEUTROPHILS % (AUTO) 74.9 %; NRBC ABSOLUTE COUNT (AUTO) 0.02 x10^3/uL; NUCLEATED RED BLOOD CELLS AUTO 0.5 /100WBC; PLT - PLATELET COUNT 160 10^3/uL (130-450); RED BLOOD COUNT 3.56 10^6/uL (4.20-5.40); RED CELL DISTRIBUTION WIDTH 23.1 % (12.0-15.0)
[2024-06-15 04:51] LABS: CALCIUM, IONIZED 1.15 mmol/L (1.15-1.33); VBG PH 7.366 (7.31-7.41)
[2024-06-15 04:56] LABS: SLIDE REVIEW? Indicated
[2024-06-15 05:08] LABS: BILIRUBIN,URINE SMALL (NEGATIVE); GLUCOSE, URINE (UA) NEGATIVE (NEGATIVE); KETONES,URINE (UA) TRACE mg/dL (NEGATIVE); LEUKOCYTE ESTERASE, URINE NEGATIVE (NEGATIVE); NITRITE,URINE NEGATIVE (NEGATIVE); OCCULT BLOOD,URINE NEGATIVE (NEGATIVE); PROTEIN,URINE NEGATIVE (NEGATIVE); UROBILINOGEN,URINE 0.2 (NORMAL) E.U./dL (NORMAL)
[2024-06-15 05:09] LABS: MAGNESIUM 2.2 mg/dL (1.7-2.3); PHOSPHORUS 4.1 mg/dL (2.5-5.0)
[2024-06-15 05:13] LABS: CLARITY,URINE CLEAR (CLEAR)
[2024-06-15 05:16] LABS: ALBUMIN 2.5 g/dL (3.2-5.5); ALBUMIN/GLOBULIN RATIO 1.6 (1.0-2.2); CALCIUM 8.3 mg/dL (8.5-10.3); CREATININE 1.1 mg/dL (0.6-1.3); POTASSIUM 5.9 mmol/L (3.5-4.5); TOTAL PROTEIN 4.1 g/dL (6.4-8.9)
[2024-06-15 05:29] LABS: PLATELET ESTIMATE, MANUAL NORMAL (130-450,000) (NORMAL); PLATELET MORPHOLOGY NORMAL APPEARANCE (NORMAL)
[2024-06-15 05:30] LABS: WBC MORPHOLOGY (MULTIPLE) NORMAL APPEARANCE (NORMAL)
--- NOTE | 2024-06-15 08:58 | PROVIDER PROGRESS NOTE ---
Subjective Subjective Subjective: Patient is arousable to verbal stimuli. She is able to tell me her name. She states that she is not in any pain. She does fall asleep midsentence. She does look fatigued and tired. Overnight, the Levophed drip was uptitrated to 10 mics per hour. Her mother is sleeping with her at bedside. She does not live with her, but is visiting because she was feeling so ill at home. She lives on a property with a good friend named Daryl. Her son is also flying in from [place] today. I spoke with her mother about if they have discussed neck steps or if they have discussed hospice. They stated that they have, and that is something that they were interested in exploring. Plan is to have a family meeting today when the son flies in. I did speak with hospice as well, let them know that they are interested in an informational. They are planning to come around 2 PM. Current Medications Current Medications Current Medications: Current Medications Generic Name Dose Route Start Last Admin Trade Name Rosemary PRN Reason Stop Dose Admin Ceftriaxone Sodium 1 gm 06/14/24 20:36 06/14/24 20:55 Ceftriaxone 1 Gm Vial IVP 1 gm DAILY CHELA Administration Hydromorphone HCl 0.1 mg 06/14/24 20:36 Hydromorphone 0.5 Mg/0.5 Ml Syringe IVP Q2H PRN Pain 8 to 10 Norepinephrine/Sodium Chloride 8 mg in 250 mls @ 15 mls/hr 06/14/24 20:00 06/15/24 07:28 Levophed 8 Mg/250-0.9% Nacl IV 10 mcg/min .[id number] CHELA 18.75 mls/hr Titration Protocol 8 MCG/MIN Sodium Chloride 1,000 mls @ 100 mls/hr 06/14/24 20:00 06/15/24 07:43 Normal Saline 0.9% IV 100 mls/hr .Q10H CHELA Administration Albumin Human 12.5 gm in 50 mls @ 50 mls/hr 06/15/24 08:33 Albuminar-25 IV 06/15/24 09:32 ONCE STA Ondansetron HCl 4 mg 06/14/24 20:36 Ondansetron Odt 4 Mg Tablet TL Q6HR PRN Nausea / Vomiting Ondansetron HCl 4 mg 06/14/24 20:36 Ondansetron 4 Mg/2 Ml Vial IVP Q6HR PRN Nausea / Vomiting Sodium Chloride 10 ml 06/15/24 01:00 06/15/24 03:08 Sodium Chloride Flush 0.9% 10 Ml Syringe IVP 10 ml 0100,0900,1700 CHELA Administration Sodium Chloride 10 ml 06/14/24 20:36 Sodium Chloride Flush 0.9% 10 Ml Syringe IVP PRN PRN NEEDED PER PROVIDER ORDERS Objective Vital Signs/Intake & Output Reviewed Vital Signs: Yes Vital Signs: Vital Signs x48h Temp Pulse Resp BP Pulse Ox O2 Flow Rate 06/15/24 08:45 92 86/59 L 97 16 06/15/24 08:30 99 15 96/66 100 06/15/24 08:15 87 9 L 91/58 L 99 06/15/24 07:55 89 102/67 99 06/15/24 07:45 84 91/60 98 06/15/24 07:40 87 84/59 L 98 06/15/24 07:35 97.5 F L 58 L 8 L 95/60 97 06/15/24 07:31 83 8 L 89/65 L 97 06/15/24 07:29 83 6 L 82/48 L 97 06/15/24 07:00 84 11 L 81/58 L 93 06/15/24 06:00 84 11 L 90/60 100 06/15/24 05:00 86 9 L 89/64 L 99 06/15/24 04:00 98.1 F 72 15 84/61 L 98 06/15/24 03:00 84 13 91/61 98 06/15/24 02:00 83 14 90/60 99 06/15/24 01:00 86 13 88/61 L 99 Intake & Output: Intake & Output 06/12/24 06/13/24 06/14/24 06/15/24 23:59 23:59 23:59 23:59 Intake Total 150 / 150 1162 / 1162 Output Total 0 / 0 300 / 300 Balance 150 / 150 862 / 862 Weight (kg) 46 kg 41.5 kg Objective General Appearance: positive No acute distress, Lethargic and Other (Is able to tell me her name; goes in and out of sleep ) Eyes Bilateral: positive Normal inspection, PERRL, Conjunctivae nml and No scleral icterus ENT: positive ENT inspection nml, Pharynx nml and No signs of dehydration Neck: positive Nml inspection, Thyroid nml and No JVD Respiratory: positive Chest non-tender, No respiratory distress and Breath sounds nml; negative Wheezes, Rales or Rhonchi Cardiovascular: positive Regular rate & rhythm and No murmur Abdomen: positive Hepatomegaly and Other (Distended, + fluid wave, mild tenderness to touch diffusely); negative Mass Back: positive Nml inspection; negative CVA tenderness (R) or CVA tenderness (L) Skin: positive Color nml, No rash, Warm and Dry Extremities: positive Non-tender, Full ROM, Nml appearance and No pedal edema Neurologic/Psychiatric: positive Disoriented to place, Disoriented to time, Weakness and Other (Lethargic) Lab Results 06/15/24 04:36 06/15/24 13:00 Other Labs: Lab Results x24hrs 06/15/24 06/15/24 06/15/24 Range/Units 06:33 04:50 04:36 WBC (4.8-10.8) x10^3/uL RBC (4.20-5.40) 10^6/uL Hgb (12.0-16.0) g/dL Hct (37.0-47.0) % MCV (81.0-99.0) fL MCH (27.0-31.0) pg MCHC (32.0-36.0) g/dL RDW (12.0-15.0) % Plt Count (130-450) 10^3/uL MPV (7.9-10.8) fL Neut # (Auto) (1.5-6.6) 10^3/uL Lymph # (Auto) (1.5-3.5) 10^3/uL [place] # (Auto) (0.0-1.0) 10^3/uL Eos # (Auto) (0.0-0.7) 10^3/uL Baso # (Auto) (0.0-0.1) 10^3/uL Absolute Nucleated RBC x10^3/uL Nucleated RBC % /100WBC Manual Slide Review WBC Morphology (NORMAL) Platelet Estimate (NORMAL) Platelet Morphology (NORMAL) RBC Morph Micro Appear 3+ ANISOCYTOSIS (NORMAL) VBG pH 7.366 (7.31-7.41) Ionized Calcium 1.15 (1.15-1.33) mmol/L Sodium 119 L* (135-145) mmol/L Potassium 5.9 H (3.5-4.5) mmol/L Chloride 96 L (101-111) mmol/L Carbon Dioxide 16 L (21-32) mmol/L Anion Gap 7.0 (6-13) BUN 42 H (6-20) mg/dL Creatinine 1.1 (0.6-1.3) mg/dL Estimated GFR (MDRD) 51 L (>89) Glucose 100 (74-104) mg/dL POC Whole Bld Glucose 92 (70-100) mg/dL Calcium 8.3 L (8.5-10.3) mg/dL Phosphorus 4.1 (2.5-5.0) mg/dL Magnesium 2.2 (1.7-2.3) mg/dL Total Bilirubin 1.0 (0.2-1.0) mg/dL AST 103 H (10-42) IU/L ALT 74 H (10-60) IU/L Alkaline Phosphatase 237 H (42-121) IU/L Ammonia (18-72) umol/L Total Protein 4.1 L (6.4-8.9) g/dL Albumin 2.5 L (3.2-5.5) g/dL Globulin 1.6 L (2.1-4.2) g/dL Albumin/Globulin Ratio 1.6 (1.0-2.2) Urine Color DARK YELLOW Urine Clarity CLEAR (CLEAR) Urine pH 6.0 (5.0-7.5) PH Ur Specific [place] 1.025 (1.002-1.030) Urine Protein NEGATIVE (NEGATIVE) mg/dL Urine Glucose (UA) NEGATIVE (NEGATIVE) mg/dL Urine Ketones TRACE (NEGATIVE) mg/dL Urine Occult Blood NEGATIVE (NEGATIVE) Urine Nitrite NEGATIVE (NEGATIVE) Urine Bilirubin SMALL H (NEGATIVE) Urine Urobilinogen 0.2 (NORMAL) (NORMAL) E.U./dL Ur Leukocyte Esterase NEGATIVE (NEGATIVE) Ur Microscopic Review NOT INDICATED Urine Culture Comments NOT INDICATED Nasal Screen MRSA (PCR) (NEGATIVE) 06/15/24 06/15/24 06/15/24 Range/Units 04:36 04:36 04:36 WBC 4.0 L (4.8-10.8) x10^3/uL RBC 3.56 L (4.20-5.40) 10^6/uL Hgb 9.5 L (12.0-16.0) g/dL Hct 30.8 L (37.0-47.0) % MCV 86.5 (81.0-99.0) fL MCH 26.7 L (27.0-31.0) pg MCHC 30.8 L (32.0-36.0) g/dL RDW 23.1 H (12.0-15.0) % Plt Count 160 (130-450) 10^3/uL MPV 9.0 (7.9-10.8) fL Neut # (Auto) 3.0 (1.5-6.6) 10^3/uL Lymph # (Auto) 0.6 L (1.5-3.5) 10^3/uL [place] # (Auto) 0.4 (0.0-1.0) 10^3/uL Eos # (Auto) 0.0 (0.0-0.7) 10^3/uL Baso # (Auto) 0.0 (0.0-0.1) 10^3/uL Absolute Nucleated RBC 0.02 x10^3/uL Nucleated RBC % 0.5 /100WBC Manual Slide Review Indicated WBC Morphology NORMAL APPEARANCE (NORMAL) Platelet Estimate NORMAL (130-450,000) (NORMAL) Platelet Morphology NORMAL APPEARANCE (NORMAL) RBC Morph Micro Appear 1+ MACROCYTOSIS 1+ TARGET CELLS 1+ OVALOCYTES (NORMAL) VBG pH (7.31-7.41) Ionized Calcium (1.15-1.33) mmol/L Sodium (135-145) mmol/L Potassium (3.5-4.5) mmol/L Chloride (101-111) mmol/L Carbon Dioxide (21-32) mmol/L Anion Gap (6-13) BUN (6-20) mg/dL Creatinine (0.6-1.3) mg/dL Estimated GFR (MDRD) (>89) Glucose (74-104) mg/dL POC Whole Bld Glucose (70-100) mg/dL Calcium (8.5-10.3) mg/dL Phosphorus (2.5-5.0) mg/dL Magnesium (1.7-2.3) mg/dL Total Bilirubin (0.2-1.0) mg/dL AST (10-42) IU/L ALT (10-60) IU/L Alkaline Phosphatase (42-121) IU/L Ammonia (18-72) umol/L Total Protein (6.4-8.9) g/dL Albumin (3.2-5.5) g/dL Globulin (2.1-4.2) g/dL Albumin/Globulin Ratio (1.0-2.2) Urine Color Urine Clarity (CLEAR) Urine pH (5.0-7.5) PH Ur Specific [place] (1.002-1.030) Urine Protein (NEGATIVE) mg/dL Urine Glucose (UA) (NEGATIVE) mg/dL Urine Ketones (NEGATIVE) mg/dL Urine Occult Blood (NEGATIVE) Urine Nitrite (NEGATIVE) Urine Bilirubin (NEGATIVE) Urine Urobilinogen (NORMAL) E.U./dL Ur Leukocyte Esterase (NEGATIVE) Ur Microscopic Review Urine Culture Comments Nasal Screen MRSA (PCR) (NEGATIVE) 06/15/24 06/14/24 06/14/24 Range/Units 00:50 21:09 21:07 WBC (4.8-10.8) x10^3/uL RBC (4.20-5.40) 10^6/uL Hgb (12.0-16.0) g/dL Hct (37.0-47.0) % MCV (81.0-99.0) fL MCH (27.0-31.0) pg MCHC (32.0-36.0) g/dL RDW (12.0-15.0) % Plt Count (130-450) 10^3/uL MPV (7.9-10.8) fL Neut # (Auto) (1.5-6.6) 10^3/uL Lymph # (Auto) (1.5-3.5) 10^3/uL [place] # (Auto) (0.0-1.0) 10^3/uL Eos # (Auto) (0.0-0.7) 10^3/uL Baso # (Auto) (0.0-0.1) 10^3/uL Absolute Nucleated RBC x10^3/uL Nucleated RBC % /100WBC Manual Slide Review WBC Morphology (NORMAL) Platelet Estimate (NORMAL) Platelet Morphology (NORMAL) RBC Morph Micro Appear (NORMAL) VBG pH (7.31-7.41) Ionized Calcium (1.15-1.33) mmol/L Sodium 119 L* 118 L* (135-145) mmol/L Potassium (3.5-4.5) mmol/L Chloride (101-111) mmol/L Carbon Dioxide (21-32) mmol/L Anion Gap (6-13) BUN (6-20) mg/dL Creatinine (0.6-1.3) mg/dL Estimated GFR (MDRD) (>89) Glucose (74-104) mg/dL POC Whole Bld Glucose 79 (70-100) mg/dL Calcium (8.5-10.3) mg/dL Phosphorus (2.5-5.0) mg/dL Magnesium (1.7-2.3) mg/dL Total Bilirubin (0.2-1.0) mg/dL AST (10-42) IU/L ALT (10-60) IU/L Alkaline Phosphatase (42-121) IU/L Ammonia (18-72) umol/L Total Protein (6.4-8.9) g/dL Albumin (3.2-5.5) g/dL Globulin (2.1-4.2) g/dL Albumin/Globulin Ratio (1.0-2.2) Urine Color Urine Clarity (CLEAR) Urine pH (5.0-7.5) PH Ur Specific [place] (1.002-1.030) Urine Protein (NEGATIVE) mg/dL Urine Glucose (UA) (NEGATIVE) mg/dL Urine Ketones (NEGATIVE) mg/dL Urine Occult Blood (NEGATIVE) Urine Nitrite (NEGATIVE) Urine Bilirubin (NEGATIVE) Urine Urobilinogen (NORMAL) E.U./dL Ur Leukocyte Esterase (NEGATIVE) Ur Microscopic Review Urine Culture Comments Nasal Screen MRSA (PCR) (NEGATIVE) 06/14/24 06/14/24 06/14/24 Range/Units 20:05 16:45 16:24 WBC 7.0 (4.8-10.8) x10^3/uL RBC 4.06 L (4.20-5.40) 10^6/uL Hgb 10.9 L (12.0-16.0) g/dL Hct 34.8 L (37.0-47.0) % MCV 85.7 (81.0-99.0) fL MCH 26.8 L (27.0-31.0) pg MCHC 31.3 L (32.0-36.0) g/dL RDW 23.2 H (12.0-15.0) % Plt Count 155 (130-450) 10^3/uL MPV 9.6 (7.9-10.8) fL Neut # (Auto) 5.5 (1.5-6.6) 10^3/uL Lymph # (Auto) 0.9 L (1.5-3.5) 10^3/uL [place] # (Auto) 0.5 (0.0-1.0) 10^3/uL Eos # (Auto) 0.0 (0.0-0.7) 10^3/uL Baso # (Auto) 0.0 (0.0-0.1) 10^3/uL Absolute Nucleated RBC 0.04 x10^3/uL Nucleated RBC % 0.6 /100WBC Manual Slide Review Indicated WBC Morphology (NORMAL) Platelet Estimate NORMAL (130-450,000) (NORMAL) Platelet Morphology NORMAL APPEARANCE (NORMAL) RBC Morph Micro Appear 3+ ANISOCYTOSIS (NORMAL) VBG pH (7.31-7.41) Ionized Calcium (1.15-1.33) mmol/L Sodium 117 L* (135-145) mmol/L Potassium 6.4 H* (3.5-4.5) mmol/L Chloride 91 L (101-111) mmol/L Carbon Dioxide 17 L (21-32) mmol/L Anion Gap 9.0 (6-13) BUN 38 H (6-20) mg/dL Creatinine 1.4 H (0.6-1.3) mg/dL Estimated GFR (MDRD) 39 L (>89) Glucose 96 (74-104) mg/dL POC Whole Bld Glucose (70-100) mg/dL Calcium 8.2 L (8.5-10.3) mg/dL Phosphorus (2.5-5.0) mg/dL Magnesium (1.7-2.3) mg/dL Total Bilirubin 1.1 H (0.2-1.0) mg/dL AST 122 H (10-42) IU/L ALT 86 H (10-60) IU/L Alkaline Phosphatase 286 H (42-121) IU/L Ammonia 100.1 H* (18-72) umol/L Total Protein 4.1 L (6.4-8.9) g/dL Albumin 2.4 L (3.2-5.5) g/dL Globulin 1.7 L (2.1-4.2) g/dL Albumin/Globulin Ratio 1.4 (1.0-2.2) Urine Color Urine Clarity (CLEAR) Urine pH (5.0-7.5) PH Ur Specific [place] (1.002-1.030) Urine Protein (NEGATIVE) mg/dL Urine Glucose (UA) (NEGATIVE) mg/dL Urine Ketones (NEGATIVE) mg/dL Urine Occult Blood (NEGATIVE) Urine Nitrite (NEGATIVE) Urine Bilirubin (NEGATIVE) Urine Urobilinogen (NORMAL) E.U./dL Ur Leukocyte Esterase (NEGATIVE) Ur Microscopic Review Urine Culture Comments Nasal Screen MRSA (PCR) NEGATIVE (NEGATIVE) Diagnostic Imaging Diagnostic Imaging Results: positive Final report reviewed Assessment/Plan Problem List (1) Hypotension: Impression: Patient with acute hypotension. This is likely due to worsening cirrhosis, worsening liver metastasis, resulting in splanchnic vasodilation, portal hypertension, decreased albumin. Notes reviewed including discharge summary from 05/24/2024 at [facility]. Here, she was hypotensive as well with systolic blood pressure in the 80s and 90s. Will trial 1 dose of IV albumin. Continue Levophed. Will titrate for MAP greater than 60. 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 Hospice informational has been requested. Patient has a son [place] in from [place], close friend named Daryl, as well as her mother at bedside; when we are all together, we will have a family discussion about her goals of care. I have also reached out to palliative care, Luci, as she has seen her as an outpatient in the past. Qualifiers: Hypotension type: unspecified hypotension type Qualified Code(s): I95.9 - Hypotension, unspecified (2) Acute hepatic encephalopathy: Impression: Patient has acute hepatic encephalopathy. Will trial lactulose enemas as patient is not build to swallow at this time. Ammonia is elevated, greater than 100. Hyponatremia may also be contributing to her altered mentation. Will continue IV fluids. Improving appropriately. Goal correction 6 to 8 mL equivalents in 24 hours. (3) Acute hyperkalemia: Impression: Resolving after IV fluids and correction of acute kidney injury. Continue to trend. (4) Pancytopenia: Impression: Patient has chemotherapy related myelosuppression with pancytopenia. Follows up closely with her service trainer/oncologist. (5) Acute kidney failure: Impression: Improvong. Likely prerenal in setting of decreased p.o. intake. Per mother, she has not eaten in 1 to 2 days. Continue aggressive IV fluid resuscitation. Qualifiers: Acute renal failure type: unspecified Qualified Code(s): N17.9 - Acute kidney failure, unspecified (6) Hypocalcemia: Impression: Corrected for albumin, she has she has a normal calcium level. Continue to monitor. (7) Ascites: Impression: Patient with moderate ascites noted on exam. Ultrasound ordered, pending. Patient has been getting every 2 week paracentesis for symptomatic relief. Started Rocephin at this time for possible SBP. 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 She completed chemotherapy, mastectomy, radiation at that time. She then developed a new diagnosis of metastatic disease in 2022. In February and March of this year, she started requiring frequent paracentesisunclear if this is due to liver metastasis or chemotherapy side effects. Discharge summary from 05/24/2024 does note that she is currently followed by [facility] although her previous oncologist has left the practice. She was advised to switch letrozole to fulvestrant after that discharge. Per oncology, she can continue treatment for cancer as an outpatient but they have also considered comfort focused care. At that time, patient refused to speak with the medical provider about her goals of care, but was open to talking with palliative care. Her oncologist appears to be Dr. Buck Sterling ([phone]). I spoke with one of his partners, Dr. Mariscal. She states that there are further lines of chemotherapy available. However, hospice would be appropriate for her at this time with this widespread metastatic spread.
[2024-06-15] MEDS: ALBUMIN 25% 12.5 GM/50 ML VIAL IV STA (09:07)
[2024-06-15 10:48] LABS: INR 1.3 (0.8-1.2); PT - PROTHROMBIN TIME 14.3 secs (9.9-12.6)
[2024-06-15] MEDS ORDERED: BENZOCAINE/MENTHOL LOZENGE MM PRN (11:31)
--- NOTE | 2024-06-15 11:58 | PHARMACY PROGRESS NOTE ---
Best Possible Medication History Admit Date and Time: 06/14/24 [id number] Home Medications Medication Instructions Recorded Confirmed Type albuterol sulfate 90 mcg/actuation 2 puff inhalation Q4H PRN SOA 08/01/23 06/15/24 History aerosol inhaler (Proventil HFA) ondansetron 4 mg disintegrating 4 - 8 mg translingual Q6H PRN 08/01/23 06/15/24 History tablet Nausea / Vomiting apixaban 5 mg tablet (Eliquis) See Rx Instructions .Route 04/02/24 06/15/24 Rx .COMPLEX #180 tabs lactulose 10 gram/15 mL oral 10 g PO DAILY 06/15/24 06/15/24 History solution morphine 15 mg immediate release 7.5 mg PO Q6H PRN pain 06/15/24 06/15/24 History tablet Processed by: Pharmacy (Medication Reconciliation completed by [employer]) Medications reviewed in ED?: No Medication History completed: Yes Patient Interview: Pt unable to participate Secondary Source(s): Other family member (patient's mom) and Insurance records [facility] Statement: As the person ultimately responsible for medication therapy, providers are able to order a medication from an existing home medication list in [facility] via the "Reconcile Routine" prior to Confirmation of that medication by it support analyst. Such practice is discouraged except when the physician, in their clinical judgment, deems that a medical need exists for a medication without regard to previous use.
[2024-06-15 13:19] LABS: CALCIUM 8.6 mg/dL (8.5-10.3); CREATININE 1.1 mg/dL (0.6-1.3); POTASSIUM 5.9 mmol/L (3.5-4.5)
[2024-06-15] MEDS: DEXTROSE 50% ABBOJECT 25 GM/50 ML SYRINGE IVP ONE ×2 (13:56→20:05)
[2024-06-15] MEDS: INSULIN REGULAR, HUMAN 300 UNIT/3 ML PEN IVP ONE ×2 (13:57→20:06)
[2024-06-15] MEDS: CALCIUM GLUC 1,000MG/50ML-NACL 1,000 MG/50 ML BAG IV ONE ×2 (13:57→16:47)
[2024-06-15] MEDS: methylPREDNISolone SUCCINATE 125 MG/2 ML VIAL IVP SCH (13:57)
--- NOTE | 2024-06-15 14:20 | PROVIDER PROGRESS NOTE ---
Progress Note Progress Note Progress Note: I was asked to review Ms. Mckay's chart for appropriateness for admission to hospice for GIP level of care. She has a hx of breast cancer (dx'd in 2012) w/peritoneal carcinomatosis dx'd in 2022. She was admitted last evening w/concern for sepsis and possible SBP. She has required pressor support overnight. She remains hypotensive with hyponatremia. Family did change her CODE status to DNR. She is currently receiving IVF, solumedrol, Rocephin and levophed. She has not required any PRN medication for pain, anxiety, or agitation. She certainly meets criteria for hospice admission with a diagnosis of end-stage breast cancer and what appears to be poor tolerance of ongoing paracentesis as well as worsening hepatic encephalopathy. However, she does not appear to have any uncontrolled symptom that would meet criteria for GIP level of care for hospice services. If she develops uncontrolled pain/dyspnea/anxiety/agitation, these would be potential sxs that could meet [facility] level of care for hospice. If this occurs, please contact hospice for assessment.
[2024-06-15] MEDS ORDERED: ACETAMINOPHEN 325 MG TABLET PO PRN (15:42)
[2024-06-15] MEDS: LACTULOSE 10 GM /15 ML UDC PO SCH (16:35)
[2024-06-15] MEDS: HYDROcod/ACETAM 5/325 MG TABLET PO PRN (16:36)
--- NOTE | 2024-06-15 17:13 | MISCELLANEOUS PROVIDER NOTE ---
Miscellaneous Provider Note - Note: Called to ICU for assist with IV access. I was able to place, in the left ba silic vein, a 20g, 2.25 inch IV under ultrasound guidance. the catheter flushed well, and I was able to withdraw blood from it. Thank you for this consult.
[2024-06-15] MEDS: SODIUM ZIRCONIUM CYCLOSILICATE 5 GM PACKET PO ONE (20:05)
[2024-06-15] MEDS: HYDROmorphone 0.5 MG/0.5 ML SYRINGE IVP PRN (20:06)
[2024-06-15] MEDS: SODIUM CHLORIDE FLUSH 0.9% 10 ML SYRINGE IVP PRN (20:07)
[2024-06-15] MEDS: ONDANSETRON 4 MG/2 ML VIAL IVP PRN (20:52)
[2024-06-15] MEDS ORDERED: PROCHLORPERAZINE 10 MG/2 ML VIAL IVP PRN (20:56)
[2024-06-15] MEDS: CARBOXYMETHYLCELLULOSE OPHTH DROPS EACHEYE PRN (23:07)
[2024-06-16 04:59] LABS: BASOPHILS % (AUTO) 0.3 %; EOSINOPHILS # (AUTO) 0.2 10^3/uL (0.0-0.7); EOSINOPHILS % (AUTO) 3.1 %; HCT - HEMATOCRIT 28.2 % (37.0-47.0); HGB - HEMOGLOBIN 8.9 g/dL (12.0-16.0); LYMPHOCYTES # (AUTO) 0.4 10^3/uL (1.5-3.5); LYMPHOCYTES % (AUTO) 7.6 %; MEAN CORPUSCULAR HEMOGLOBIN 27.3 pg (27.0-31.0); MEAN CORPUSCULAR HGB CONC 31.6 g/dL (32.0-36.0); MEAN CORPUSCULAR VOLUME 86.5 fL (81.0-99.0); MEAN PLATELET VOLUME 9.6 fL (7.9-10.8); MONOCYTES # (AUTO) 0.2 10^3/uL (0.0-1.0); MONOCYTES % (AUTO) 3.8 %; NEUTROPHILS # (AUTO) 4.9 10^3/uL (1.5-6.6); NEUTROPHILS % (AUTO) 84.7 %; NRBC ABSOLUTE COUNT (AUTO) 0.02 x10^3/uL; NUCLEATED RED BLOOD CELLS AUTO 0.3 /100WBC; PLT - PLATELET COUNT 160 10^3/uL (130-450); RED BLOOD COUNT 3.26 10^6/uL (4.20-5.40); RED CELL DISTRIBUTION WIDTH 23.2 % (12.0-15.0); WHITE BLOOD COUNT 5.8 x10^3/uL (4.8-10.8)
[2024-06-16 05:02] LABS: CALCIUM, IONIZED 1.21 mmol/L (1.15-1.33); VBG PH 7.336 (7.31-7.41)
[2024-06-16 05:13] LABS: SLIDE REVIEW? Indicated
[2024-06-16 05:17] LABS: INR 1.4 (0.8-1.2); PT - PROTHROMBIN TIME 15.1 secs (9.9-12.6)
[2024-06-16 05:21] LABS: ALBUMIN 2.6 g/dL (3.2-5.5); ALBUMIN/GLOBULIN RATIO 1.9 (1.0-2.2); BILIRUBIN,TOTAL 0.8 mg/dL (0.2-1.0); CALCIUM 8.3 mg/dL (8.5-10.3); CREATININE 1.1 mg/dL (0.6-1.3); PHOSPHORUS 3.4 mg/dL (2.5-5.0); POTASSIUM 5.8 mmol/L (3.5-4.5)
[2024-06-16 05:59] LABS: PLATELET ESTIMATE, MANUAL NORMAL (130-450,000) (NORMAL); PLATELET MORPHOLOGY NORMAL APPEARANCE (NORMAL); WBC MORPHOLOGY (MULTIPLE) NORMAL APPEARANCE (NORMAL)
--- NOTE | 2024-06-16 14:40 | PROVIDER PROGRESS NOTE ---
Subjective Prog Note Date Prog Note Date: 06/16/24 Prog Note Time: 14:37 Subjective Subjective: Patient is barely responsive. She does open her eyes and look at me. She will start to answer question but fade off after 1 word. Nursing reports that there is no signs or symptoms of discomfort. Patient herself was not really able to answer my questions. But there does not appear to be any tachypnea, grimacing of pain, crying out with pain. There is no respiratory distress. She is with eyes open, staring into the distance, monosyllabic at times at best. Current Medications Current Medications Current Medications: Current Medications Generic Name Dose Route Start Last Admin Trade Name Freq PRN Reason Stop Dose Admin Acetaminophen 650 mg 06/15/24 15:42 Acetaminophen 325 Mg Tablet PO Q4HR PRN Pain 1 to 4, or Fever Hydrocodone Bitart/Acetaminophen 1 tab 06/15/24 15:42 06/15/24 16:36 Hydrocod/Acetam 5/325 Mg Tablet PO 1 tab Q4HR PRN Administration Pain 5 to 7 Carboxymethylcellulose 1 drops 06/15/24 22:49 06/16/24 03:41 Carboxymethylcellulose Ophth Drops EACHEYE 1 drops Q4HR PRN Administration Dry Eye Ceftriaxone Sodium 1 gm 06/14/24 20:36 06/16/24 09:53 Ceftriaxone 1 Gm Vial IVP 1 gm DAILY CHELA Administration Hydromorphone HCl 0.1 mg 06/14/24 20:36 06/16/24 07:31 Hydromorphone 0.5 Mg/0.5 Ml Syringe IVP 0.1 mg Q2H PRN Administration Pain 8 to 10 Norepinephrine/Sodium Chloride 8 mg in 250 mls @ 15 mls/hr 06/14/24 20:00 06/16/24 13:53 Levophed 8 Mg/250-0.9% Nacl IV 10 mcg/min .[id number] CHELA 18.75 mls/hr Administration Protocol 8 MCG/MIN Sodium Chloride 1,000 mls @ 125 mls/hr 06/14/24 20:00 06/16/24 13:48 Normal Saline 0.9% IV 100 mls/hr .Q8H CHELA Administration Lactulose 10 gm 06/15/24 15:42 06/16/24 13:47 Lactulose 10 Gm /15 Ml Udc PO Not Given QID CHELA Methylprednisolone Sodium Succinate 125 mg 06/15/24 14:00 06/16/24 13:47 Methylprednisolone Succinate 125 Mg/2 Ml Vial IVP 125 mg TID CHELA Administration Ondansetron HCl 4 mg 06/14/24 20:36 Ondansetron Odt 4 Mg Tablet TL Q6HR PRN Nausea / Vomiting Ondansetron HCl 4 mg 06/14/24 20:36 06/15/24 20:52 Ondansetron 4 Mg/2 Ml Vial IVP 4 mg Q6HR PRN Administration Nausea / Vomiting Prochlorperazine Edisylate 10 mg 06/15/24 20:56 Prochlorperazine 10 Mg/2 Ml Vial IVP Q6HR PRN Nausea / Vomiting Sodium Chloride 10 ml 06/15/24 01:00 06/16/24 09:54 Sodium Chloride Flush 0.9% 10 Ml Syringe IVP 10 ml 0100,0900,1700 CHELA Administration Sodium Chloride 10 ml 06/14/24 20:36 06/16/24 06:25 Sodium Chloride Flush 0.9% 10 Ml Syringe IVP 10 ml PRN PRN Administration NEEDED PER PROVIDER ORDERS Objective Vital Signs/Intake & Output Reviewed Vital Signs: Yes Vital Signs: Vital Signs Temp Pulse Resp BP Pulse Ox 06/16/24 15:00 90 11 L 97/67 97 06/16/24 14:00 90 15 98/71 96 06/16/24 13:00 94 7 L 104/72 95 06/16/24 12:00 36.4 C L 93 9 L 92/66 100 Intake & Output: Intake & Output 06/13/24 06/14/24 06/15/24 06/16/24 23:59 23:59 23:59 23:59 Intake Total 150 / 150 2224 / 2224 2494 / 2494 Output Total 0 / 0 670 / 670 230 / 230 Balance 150 / 150 1554 / 1554 2264 / 2264 Weight (kg) 46 kg 41.5 kg 46 kg Objective General Appearance: positive No acute distress and Other (Severely gaunt and cachectic. 5feet 4 inches tall, 46 kg. Constantly cold. But then she gets overheated with the numerous blankets and hat and then we have to pull the blankets off.) Eyes Bilateral: positive PERRL ENT: positive Other (lips and mucosa dry) Neck: positive No JVD Respiratory: positive No respiratory distress, Breath sounds nml and Other (She barely moves her chest wall. No increased effort. Weight is down to 7. Opioid why she received 0.1 mg of Dilaudid at 730 this morning. And 0.1 mg at 4:45 in the morning.) Cardiovascular: positive Regular rate & rhythm and Systolic murmur Abdomen: positive Non-tender; negative Nml bowel sounds (Very rare, hypoactive.), Tenderness or Guarding Skin: positive Dry and Pallor Extremities: negative Nml appearance (Severe cachexia with loss of muscle mass. She is all skin and bone. Hands and feet very cold.) Neurologic/Psychiatric: positive Oriented x3 (Difficult to get her to respond. Again, monosyllabic responses, I cannot tell if she knows what is going on. But she does listen to the conversation I have other family.), CN's nml (2-12) (No facial asymmetry. Speech is slow, weak and monosyllabic. Able to swallow without choking. Able to turn her head and her eyes to look at me) and Other (She gazes off into the distance and will slowly turn her vision to you when you call her name. But no true meaningful interaction.); negative Motor nml (Diffuse generalized weakness. She cannot sit herself up in the bed. Needs a nurse to sit her up. Needs someone to roll her over.) Lab Results 06/16/24 04:39 06/16/24 09:04 Other Labs: Lab Results x24hrs 06/16/24 06/16/24 06/16/24 Range/Units 11:46 09:04 07:33 WBC (4.8-10.8) x10^3/uL RBC (4.20-5.40) 10^6/uL Hgb (12.0-16.0) g/dL Hct (37.0-47.0) % MCV (81.0-99.0) fL MCH (27.0-31.0) pg MCHC (32.0-36.0) g/dL RDW (12.0-15.0) % Plt Count (130-450) 10^3/uL MPV (7.9-10.8) fL Neut # (Auto) (1.5-6.6) 10^3/uL Lymph # (Auto) (1.5-3.5) 10^3/uL Miner # (Auto) (0.0-1.0) 10^3/uL Eos # (Auto) (0.0-0.7) 10^3/uL Baso # (Auto) (0.0-0.1) 10^3/uL Absolute Nucleated RBC x10^3/uL Nucleated RBC % /100WBC Manual Slide Review WBC Morphology (NORMAL) Platelet Estimate (NORMAL) Platelet Morphology (NORMAL) RBC Morph Micro Appear (NORMAL) PT (9.9-12.6) secs INR (0.8-1.2) VBG pH (7.31-7.41) Ionized Calcium (1.15-1.33) mmol/L Sodium 120 L* (135-145) mmol/L Potassium (3.5-4.5) mmol/L Chloride (101-111) mmol/L Carbon Dioxide (21-32) mmol/L Anion Gap (6-13) BUN (6-20) mg/dL Creatinine (0.6-1.3) mg/dL Estimated GFR (MDRD) (>89) Glucose (74-104) mg/dL POC Whole Bld Glucose 146 155 (70-100) mg/dL Calcium (8.5-10.3) mg/dL Phosphorus (2.5-5.0) mg/dL Magnesium (1.7-2.3) mg/dL Total Bilirubin (0.2-1.0) mg/dL AST (10-42) IU/L ALT (10-60) IU/L Alkaline Phosphatase (42-121) IU/L Total Protein (6.4-8.9) g/dL Albumin (3.2-5.5) g/dL Globulin (2.1-4.2) g/dL Albumin/Globulin Ratio (1.0-2.2) Prealbumin (17-34) mg/dL 06/16/24 06/16/24 06/16/24 Range/Units 04:39 04:39 04:39 WBC (4.8-10.8) x10^3/uL RBC (4.20-5.40) 10^6/uL Hgb (12.0-16.0) g/dL Hct (37.0-47.0) % MCV (81.0-99.0) fL MCH (27.0-31.0) pg MCHC (32.0-36.0) g/dL RDW (12.0-15.0) % Plt Count (130-450) 10^3/uL MPV (7.9-10.8) fL Neut # (Auto) (1.5-6.6) 10^3/uL Lymph # (Auto) (1.5-3.5) 10^3/uL Miner # (Auto) (0.0-1.0) 10^3/uL Eos # (Auto) (0.0-0.7) 10^3/uL Baso # (Auto) (0.0-0.1) 10^3/uL Absolute Nucleated RBC x10^3/uL Nucleated RBC % /100WBC Manual Slide Review WBC Morphology (NORMAL) Platelet Estimate (NORMAL) Platelet Morphology (NORMAL) RBC Morph Micro Appear 1+ TEARDROP CELLS 1+ OVALOCYTES 2+ HYPOCHROMASIA (NORMAL) PT 15.1 H (9.9-12.6) secs INR 1.4 H (0.8-1.2) VBG pH 7.336 (7.31-7.41) Ionized Calcium 1.21 (1.15-1.33) mmol/L Sodium 121 L (135-145) mmol/L Potassium 5.8 H (3.5-4.5) mmol/L Chloride 100 L (101-111) mmol/L Carbon Dioxide 16 L (21-32) mmol/L Anion Gap 5.0 L (6-13) BUN 40 H (6-20) mg/dL Creatinine 1.1 (0.6-1.3) mg/dL Estimated GFR (MDRD) 51 L (>89) Glucose 176 H (74-104) mg/dL POC Whole Bld Glucose (70-100) mg/dL Calcium 8.3 L (8.5-10.3) mg/dL Phosphorus 3.4 (2.5-5.0) mg/dL Magnesium 2.0 (1.7-2.3) mg/dL Total Bilirubin 0.8 (0.2-1.0) mg/dL AST 88 H (10-42) IU/L ALT 69 H (10-60) IU/L Alkaline Phosphatase 220 H (42-121) IU/L Total Protein 4.0 L (6.4-8.9) g/dL Albumin 2.6 L (3.2-5.5) g/dL Globulin 1.4 L (2.1-4.2) g/dL Albumin/Globulin Ratio 1.9 (1.0-2.2) Prealbumin 4 L (17-34) mg/dL 06/16/24 06/15/24 06/15/24 Range/Units 04:39 23:16 21:36 WBC 5.8 (4.8-10.8) x10^3/uL RBC 3.26 L (4.20-5.40) 10^6/uL Hgb 8.9 L (12.0-16.0) g/dL Hct 28.2 L (37.0-47.0) % MCV 86.5 (81.0-99.0) fL MCH 27.3 (27.0-31.0) pg MCHC 31.6 L (32.0-36.0) g/dL RDW 23.2 H (12.0-15.0) % Plt Count 160 (130-450) 10^3/uL MPV 9.6 (7.9-10.8) fL Neut # (Auto) 4.9 (1.5-6.6) 10^3/uL Lymph # (Auto) 0.4 L (1.5-3.5) 10^3/uL Miner # (Auto) 0.2 (0.0-1.0) 10^3/uL Eos # (Auto) 0.2 (0.0-0.7) 10^3/uL Baso # (Auto) 0.0 (0.0-0.1) 10^3/uL Absolute Nucleated RBC 0.02 x10^3/uL Nucleated RBC % 0.3 /100WBC Manual Slide Review Indicated WBC Morphology NORMAL APPEARANCE (NORMAL) Platelet Estimate NORMAL (130-450,000) (NORMAL) Platelet Morphology NORMAL APPEARANCE (NORMAL) RBC Morph Micro Appear 2+ ANISOCYTOSIS (NORMAL) PT (9.9-12.6) secs INR (0.8-1.2) VBG pH (7.31-7.41) Ionized Calcium (1.15-1.33) mmol/L Sodium 121 L (135-145) mmol/L Potassium 5.8 H (3.5-4.5) mmol/L Chloride (101-111) mmol/L Carbon Dioxide (21-32) mmol/L Anion Gap (6-13) BUN (6-20) mg/dL Creatinine (0.6-1.3) mg/dL Estimated GFR (MDRD) (>89) Glucose (74-104) mg/dL POC Whole Bld Glucose 239 (70-100) mg/dL Calcium (8.5-10.3) mg/dL Phosphorus (2.5-5.0) mg/dL Magnesium (1.7-2.3) mg/dL Total Bilirubin (0.2-1.0) mg/dL AST (10-42) IU/L ALT (10-60) IU/L Alkaline Phosphatase (42-121) IU/L Total Protein (6.4-8.9) g/dL Albumin (3.2-5.5) g/dL Globulin (2.1-4.2) g/dL Albumin/Globulin Ratio (1.0-2.2) Prealbumin (17-34) mg/dL 06/15/24 06/15/24 Range/Units 17:20 17:03 WBC (4.8-10.8) x10^3/uL RBC (4.20-5.40) 10^6/uL Hgb (12.0-16.0) g/dL Hct (37.0-47.0) % MCV (81.0-99.0) fL MCH (27.0-31.0) pg MCHC (32.0-36.0) g/dL RDW (12.0-15.0) % Plt Count (130-450) 10^3/uL MPV (7.9-10.8) fL Neut # (Auto) (1.5-6.6) 10^3/uL Lymph # (Auto) (1.5-3.5) 10^3/uL Miner # (Auto) (0.0-1.0) 10^3/uL Eos # (Auto) (0.0-0.7) 10^3/uL Baso # (Auto) (0.0-0.1) 10^3/uL Absolute Nucleated RBC x10^3/uL Nucleated RBC % /100WBC Manual Slide Review WBC Morphology (NORMAL) Platelet Estimate (NORMAL) Platelet Morphology (NORMAL) RBC Morph Micro Appear (NORMAL) PT (9.9-12.6) secs INR (0.8-1.2) VBG pH (7.31-7.41) Ionized Calcium (1.15-1.33) mmol/L Sodium 120 L* (135-145) mmol/L Potassium 5.4 H (3.5-4.5) mmol/L Chloride (101-111) mmol/L Carbon Dioxide (21-32) mmol/L Anion Gap (6-13) BUN (6-20) mg/dL Creatinine (0.6-1.3) mg/dL Estimated GFR (MDRD) (>89) Glucose (74-104) mg/dL POC Whole Bld Glucose 111 (70-100) mg/dL Calcium (8.5-10.3) mg/dL Phosphorus (2.5-5.0) mg/dL Magnesium (1.7-2.3) mg/dL Total Bilirubin (0.2-1.0) mg/dL AST (10-42) IU/L ALT (10-60) IU/L Alkaline Phosphatase (42-121) IU/L Total Protein (6.4-8.9) g/dL Albumin (3.2-5.5) g/dL Globulin (2.1-4.2) g/dL Albumin/Globulin Ratio (1.0-2.2) Prealbumin (17-34) mg/dL ABX Reporting Has patient been on IV antibiotics over the past 48 hours?: Yes Assessment/Plan Problem List (1) Hypotension: Impression: Previous hypotension noted for weeks. Noted with ER visits in May, Admit to [facility] 05/22/24-05/24/24. Sometimes as low as 70 systolic. Admission recommended when her site of paracentesis was leaking. But she declined that opportunity. With this admit, patient with hypotension at 80/51. This is likely due to worsening cirrhosis, worsening liver metastasis, resulting in splanchnic vasodilation, portal hypertension, decreased albumin. Notes reviewed including discharge summary from 05/24/2024 at [facility]. Here, she was hypotensive as well with systolic blood pressure in the 80s and 90s. We tried a dose of albumin IV. And she was started on peripheral Levophed. She still on peripheral Levophed today. Plan: Advance care planning conversation held with family. Please see separate dictated note. Continue Levophed and current supportive care. Her family is aware of her very poor prognosis. Qualifiers: Hypotension type: unspecified hypotension type Qualified Code(s): I95.9 - Hypotension, unspecified (2) Acute hepatic encephalopathy: Impression: Patient has acute hepatic encephalopathy. She was initially trialled on lactulose enema. The provider felt that she had woken up enough to be transitioned to oral lactulose. But today the nurse said that he feels the patient is not aware enough or alert enough and would be at risk for aspiration. As such I am switching back to lactulose enema. Hyponatremia may also be contributing to her altered mentation. In spite of IV fluids, her sodium has not really improved much. I reviewed her labs and when she was admitted she was 117. She is gone as a high as 121 this morning at 4:30 AM. But she is 120 at 9 AM. I will continue her IV fluids. (3) Acute hyperkalemia: Impression: Resolving after IV fluids and correction of acute kidney injury. In reviewing her labs, I found her potassium to be 6.4 on admission. She is 5.8 today but has stayed that way between yesterday and today. Since I am resuming her lactulose enemas I do not know if I want to give her enemas for her potassium as well.The next step would be D50 with IV insulin. The family is very conflicted. On the one hand they want this patient comfortable, and cannot move forward with a decision to de-escalate therapy for comfort measures only, but on the other hand they did not want me to be too aggressive. I hesitate to give the IV insulin with D50 at this time. But I will consider it tomorrow. Continue to trend. (4) Pancytopenia: Impression: Patient has chemotherapy related myelosuppression with pancytopenia. Follows up closely with her supervisor process testing/oncologist. (5) Acute kidney failure: Impression: She was initially improving. But I think she is worsening overall. BUN was 42 on Brittany 6 and went to 39 by yesterday afternoon. This morning she is 40. Likely prerenal in setting of decreased p.o. intake. Per mother, she has not eaten in 1 to 2 days. Continue aggressive IV fluid resuscitation. Qualifiers: Acute renal failure type: unspecified Qualified Code(s): N17.9 - Acute kidney failure, unspecified (6) Hypocalcemia: Impression: Corrected for albumin, she has she has a normal calcium level. Continue to monitor. (7) Ascites: Impression: Patient with moderate ascites noted on exam. Ultrasound done on 06/15/24 but is still pending with results to be posted. Patient has been getting every 2 week paracentesis for symptomatic relief. Started Rocephin at this time for possible SBP. I will continue the rocephin for now. But again, I have urged the family to consider changing to comfort measures only. They will let me know. 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 She completed chemotherapy, mastectomy, radiation at that time. She then developed a new diagnosis of metastatic disease in 2022. In February and March of this year, she started requiring frequent paracentesisunclear if this is due to liver metastasis or chemotherapy side effects. Discharge summary from 05/24/2024 does note that she is currently followed by [facility] although her previous oncologist has left the practice. She was advised to switch letrozole to fulvestrant after that discharge. Per oncology, she can continue treatment for cancer as an outpatient but they have also considered comfort focused care. At that time, patient refused to speak with the medical provider about her goals of care, but was open to talking with palliative care. Her oncologist appears to be Dr. Buck Sterling ([phone]). I spoke with one of his partners, Dr. Mariscal. She states that there are further lines of chemotherapy available. However, hospice would be appropriate for her at this time with this widespread metastatic spread. With today's evaluation, this patient is not improving. Overall I feel she is slowly dying. Advance care planning conversation held under separate dictation. Please read that dictation.
--- NOTE | 2024-06-16 15:11 | ADVANCE CARE PLANNING NOTE ---
Advance Care Planning Planning Encounter Date: 06/16/24 Time: 13:00 Purpose: Establish care goals in a patient who is imminently dying and to has been refusing hospice or palliative care Parties in Attendance: Mother, 2 siblings, 2 best friends. One of the best friend she has lived with for 20 years. His son is also present. No formal DPOA Decisional Capacity of the Patient: Patient unable to participate in meaningful conversation. Encephalopathic. Monosyllabic responses at best. 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 Since then she has struggled. Initially had good response to treatment and then failed that and change therapy. Progression of disease. She has constant abdominal pain and bloating. She has been requiring every 2-week paracentesis to relieve the ascites. She has been seen by palliative care and has really not wanted to discuss hospice. She is also still a full code. She has been clearly deteriorating in a rapid rate over the last few weeks. Has almost nothing and has lost quite a bit of weight. She is getting less and less responsive. A liver biopsy was done in October 2022 to make sure that there was not a primary liver problem on top of metastatic disease (fluid showed malignant epithelioid cells with ER positivity). Family is under the impression that she has cirrhosis but not from alcohol but from her chemotherapy. She has had multiple visits to the emergency room for the ascites and leaking paracentesis site. She was admitted to [facility] last month because of ascites and abdominal discomfort. All of these visits show hypertension, cachexia, and the patient who is most likely dying. Palliative care notes were reviewed and indicate the patient has poor insight. It was not clear that she recognized that all of this treatment was made to be palliative not curative. She has been seen by palliative care and really did not want to discuss hospice or end-of-life issues. Limitations were abdominal pain, lack of memory, severe coldness and fatigue. She lamented not being able to do anything because she just had no energy or the ability to focus on task. 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 She has 2 best friends. One of them she has lived with for over 20 years. She also has her mother, brother, and sister here today for this conversation. By designation they are going to let mom make all the decisions but will support her in any decisions she made. We did asked the patient questions but she is really unable to respond. She will start a sentence with 1 word and then just fade off. She does respond to her family's voices. Will try and answer yes no. Will indicate whether she is hot or cold and wants blankets on or off but no full sentence structure. The family is in agreement that they will support mom's decision that the patient be DO NOT RESUSCITATE. After I explained the severity of this patient's illness, the poor prognosis, and the fact that her last oncology note recommends hospice, they really want to have a further discussion with the patient and trying get her to decide before they tell me what they want. Objective/Medical Story: Original breast cancer diagnosis was December 2012. She was clinical stage IIIb invasive lobular carcinoma. She received neoadjuvant treatment and a right sided modified radical mastectomy and left-sided prophylactic mastectomy. She also had a left breast cancer. She received adjuvant radiation therapy through December 2013. And then was on adjuvant endocrine therapy with tamoxifen from 2013- 2018. She then presented to the emergency room in 2022. She was found to have recurrent metastatic ER positive breast cancer with peritoneal carcinomatosis, ascites, liver mets and osseous mets. Although letrozole and ribociclib were ordered there was a delay in obtaining it. First active treatment was in November 2022 with carboplatinum and paclitaxel. She initially responded with resolution of the ascites. But had unremitting unrelenting abdominal pain and bony pain. She was initially treated with long-acting morphine but was afraid of getting addicted so she switched herself to CBD and THC products. 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 Intermittent nausea. Intermittent anorexia. She also found it difficult to focus on felt that she had chemo brain. That resulted in short-term memory issues. Although she had had initial improvement with tumor bulking getting smaller, by May 2023 it looks like there is progression. Her oncologist left the practice and she got a new oncologist with Dr. Buck Moon. She completed the carboplatinum and paclitaxel March 2023 and was switched to ribociclib and letrozole. She developed a left leg DVT in 2022 and was on Eliquis. Or the further course of 2023 the patient has had continued progression of pain, disease. There does not seem to be tumor response on CAT scans noted. She then had an admission in May 2024 to [facility]. This is for the ascites, management of her pain. Discharged after a few days with no clear expectation that she would improve. She continues to struggle at home with inability to eat to abdominal due to abdominal distention, anorexia, nausea, pain. Her oncology note did state that they would recommend hospice. However if the patient's ECOG score improved she might be a candidate for experimental protocol.She presented to our emergency room with worsening mental status, failure to thrive, hyponatremia, hypotension. She is being treated for spontaneous bacterial peritonitis, is on Levophed. Ammonia was elevated and she was started on lactulose. She is also on stress dose steroids. I have explained to the family that this patient's score is so low, she is not a candidate for any treatment at this time. Goals of Care: Although the family would like to honor the patient's wishes of being aggressive with treatment, I have explained that (in spite of treatment) she has continued to fail. I do not know how much this patient would gain from continuing aggressive treatment. They recognize the futility and of at least asked me to make her DO NOT RESUSCITATE. Plan: 1. DO NOT RESUSCITATE status will be written in the chart 2. There is another sibling who is flying in tomorrow. They would like to discuss de-escalation of therapy amongst themselves and with his sibling before they let me know what they would like. They are discussing continuing Levophed indefinitely to keep her alive. I did not recommend that. Code Status: Do Not Attempt Resuscitation Time spent on advance care plannin minutes
[2024-06-16 20:42] VITALS: TEMP 97
[2024-06-16 21:23] VITALS: BP 86/53; O2SAT 98
[2024-06-16] MEDS ORDERED: ATROPINE 1% OPHTH DROPS 2 ML SL PRN (21:48)
[2024-06-16] MEDS: LORazepam 2 MG/ML VIAL IVP PRN (22:21)
--- NOTE | 2024-06-17 09:30 | Discharge Summary ---
"Discharge Summary Admit Date: 06/14/24 Discharge Date: 06/17/24 Discharging Provider: Keri Hawk MD Primary Care Provider: GINA Prescott/Buck Sterling MD (Oncology) Code Status: Do Not Attempt Resuscitation DIAGNOSES Discharge Diagnoses with Status of Each Condition: 1. Hypovolemic shock 2. Acute on chronic hepatic encephalopathy 3. Severe protein calorie malnutrition 4. Malignant neoplasm of breast metastatic to peritoneum 5. Pancytopenia 6. Acute kidney failure 7. Hyperkalemia 8. Hypocalcemia 9. Elevated ammonia 10. DehydrationWith hyponatremia 11. Ascites HPI History of Present Illness: Original breast cancer diagnosis was December 2012. She was clinical stage IIIb invasive lobular carcinoma. She received neoadjuvant treatment and a right sided modified radical mastectomy and left-sided prophylactic mastectomy. She also had a left breast cancer. She received adjuvant radiation therapy through December 2013. And then was on adjuvant endocrine therapy with tamoxifen from 2013- 2018. She then presented to the emergency room in 2022. She was found to have recurrent metastatic ER positive breast cancer with peritoneal carcinomatosis, ascites, liver mets and osseous mets. Although letrozole and ribociclib were ordered there was a delay in obtaining it. First active treatment was in November 2022 with carboplatinum and paclitaxel. She initially responded with resolution of the ascites. But had unremitting unrelenting abdominal pain and bony pain. She was initially treated with long-acting morphine but was afraid of getting addicted so she switched herself to CBD and THC products. 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 Intermittent nausea. Intermittent anorexia. She also found it difficult to focus on felt that she had chemo brain. That resulted in short-term memory issues. Although she had had initial improvement with tumor bulking getting smaller, by May 2023 it looks like there is progression. Her oncologist left the practice and she got a new oncologist with Dr. Buck Moon. She completed the carboplatinum and paclitaxel March 2023 and was switched to ribociclib and letrozole. She developed a left leg DVT in 2022 and was on Eliquis. Or the further course of 2023 the patient has had continued progression of pain, disease. There does not seem to be tumor response on CAT scans noted. She then had an admission in May 2024 to [facility]. This is for the ascites, management of her pain. Discharged after a few days with no clear expectation that she would improve. She continues to struggle at home with inability to eat to abdominal due to abdominal distention, anorexia, nausea, pain. Her oncology note did state that they would recommend hospice. However if the patient's ECOG score improved she might be a candidate for experimental protocol.She presented to our emergency room with worsening mental status, failure to thrive, hyponatremia, hypotension. She is being treated for spontaneous bacterial peritonitis, is on Levophed. Ammonia was elevated and she was started on lactulose. She is also on stress dose steroids. In the ER today, she has been progressively getting worse over the past 2 weeks presents with encephalopathy and low blood pressure. Prehospital blood pressure was 77/50. She has liver failure, on lactulose. She gets frequent paracenteses, with the last one 2 days ago. In the ER, lab work was significant for sodium of 117, potassium 6.4, creatinine 1.4, calcium 8.2. Her LFTs are somewhat higher than normal, and her ammonia is 100.1. Hospitalist was contacted for acute on chronic hyponatremia, acute kidney failure with elevated potassium and metabolic encephalopathy. CONSULTS | PROCEDURES Procedures: Abdominal ultrasound was of moderate to large quantity of ascites. Cirrhotic liver morphology.. HOSPITAL COURSE Hospital Course: Diagnosed with breast cancer in December 2012. Since then she has struggled. Initially had good response to treatment and then failed that and change therapy. Progression of disease. She has constant abdominal pain and bloating. She has been requiring every 2-week paracentesis to relieve the ascites. She has been seen by palliative care and has really not wanted to discuss hospice. She is also still a full code. She has been clearly deteriorating in a rapid rate over the last few weeks. Has almost nothing and has lost quite a bit of weight. She is getting less and less responsive. A liver biopsy was done in October 2022 to make sure that there was not a primary liver problem on top of metastatic disease (fluid showed malignant epithelioid cells with ER positivity). Family is under the impression that she has cirrhosis but not from alcohol but from her chemotherapy. She has had multiple visits to the emergency room for the ascites and leaking paracentesis site. She was admitted to [facility] last month because of ascites and abdominal discomfort. All of these visits show hypertension, cachexia, and the patient who is most likely dying. Palliative care notes were reviewed and indicate the patient has poor insight. It was not clear that she recognized that all of this treatment was made to be palliative not curative. She has been seen by palliative care and really did not want to discuss hospice or end-of-life issues. Limitations were abdominal pain, lack of memory, severe coldness and fatigue. She lamented not being able to do anything because she just had no energy or the ability to focus on task. She continues to struggle at home with inability to eat to abdominal due to abdominal distention, anorexia, nausea, pain. Her oncology note did state that they would recommend hospice. However if the patient's ECOG score improved she might be a candidate for experimental protocol.She presented to our emergency room with worsening mental status, failure to thrive, hyponatremia, hypotension. She is being treated for spontaneous bacterial peritonitis, is on Levophed. Ammonia was elevated and she was started on lactulose. She is also on stress dose steroids. She has never made arrangements for her [employer]ICE. She has 2 best friends. One of them she has lived with for over 20 years. She also has her mother, brother, and sister here today for this conversation. By designation they are going to let mom make all the decisions but will support her in any decisions she made. We did asked the patient questions but she is really unable to respond. She will start a sentence with 1 word and then just fade off. She does respond to her family's voices. Will try and answer yes no. Will indicate whether she is hot or cold and wants blankets on or off but no full sentence structure. The family is in agreement that they will support the patient's mother as the designated DPOA and she has made the decision that the patient be DO NOT RESUSCITATE. After I explained the severity of this patient's illness, the poor prognosis, and the fact that her last oncology note recommends hospice, they really wanted to have a further discussion with the patient and trying get her to decide before they tell me what they want. The patient was in the room with all of this discussion. At times her eyes were open and she would be looking at us. At other times her eyes would gaze off into the distance. And sometimes her eyes were closed. She was able to open her eyes and tell me that she heard what I said. And she wanted to think about what to do with her family. A few hours after this discussion, the family called me back into the room. The patient had told him that she wanted to transition to comfort measures only. As much as I could, in spite of her fatigue and lethargy, I explained to her that stopping the Levophed might result in in a few hours or couple of days. She was not able to verbalize yes or no but nodded her head yes when I explained this to her. I asked if she still wanted me to stop the Levophed and she nodded yes. The patient at 1030 that night. She was able to meet with one of her sisters that flew in in addition to all of the family members currently present. ALLERGIES Allergies Allergy/AdvReac Type Severity Reaction Status Date / Time Penicillins AdvReac Rash Verified 06/14/24 16:19 MEDICATIONS Ambulatory Orders Medication Instructions Recorded Confirmed albuterol sulfate 90 mcg/actuation 2 puff inhalation Q4H PRN SOA 08/01/23 06/15/24 aerosol inhaler (Proventil HFA) ondansetron 4 mg disintegrating 4 - 8 mg translingual Q6H PRN 08/01/23 06/15/24 tablet Nausea / Vomiting apixaban 5 mg tablet (Eliquis) See Rx Instructions .Route 04/02/24 06/15/24 .COMPLEX #180 tabs lactulose 10 gram/15 mL oral 10 g PO DAILY 06/15/24 06/15/24 solution morphine 15 mg immediate release 7.5 mg PO Q6H PRN pain 06/15/24 06/15/24 tablet LABS 06/16/24 04:39 06/16/24 09:04 Discharge Plan Discharge Patient Disposition: 20 Print Language: Montserratian Date/Time: 06/17/24 05:33"
--- NOTE | 2024-06-17 18:49 | Ultrasound Report ---
PROCEDURE: US Abdomen Limited INDICATIONS: abdominal distension TECHNIQUE: Real-time focused scanning was performed of the abdomen, with image documentation. COMPARISONS: None. FINDINGS: Moderate to large quantity of ascites present in the right abdomen. Incidental note is made of cirrho tic liver morphology . IMPRESSION: Moderate to large quantity of ascites. Cirrhotic liver morphology. Reviewed by: Maura Reyes MD on 06/17/2024 6:48 PM PST Approved by: Maura Reyes MD on 06/17/2024 6:48 PM PST Station ID: [id number]
== END 2024-06-17 05:33 | disposition expired | DRG 441 ==
LOC: ED 16:01 → ICU 19:41
PROVIDERS: ADMIT Nurse Practitioner Acute Care; ATTEND Nurse Practitioner Acute Care